=== PATIENT | female | born 1945 | race Asian ===

== ENCOUNTER 2019-04-26 09:33 | Emergency (ER) | payer MEDICARE ==
[2019-04-26] MEDS ORDERED: Sodium Chloride 0.9% 1000 ML 1,000 ML IV SCH (10:00)
--- NOTE | 2019-04-26 10:06 | ERPHSYRPT ---
- History of Present Illness Time Seen by Provider: 04/26/19 09:53 Source: patient Exam Limitations: no limitations Patient Subjective Stated Complaint: pt here for dizziness and pain to left arm today Triage Nursing Assessment: , Physician History: 73-year-old female arrives with complaint of feeling dizzy since awakening this morning approximately 9:00 she states she felt so dizzy she felt that she is having a hard time walking she states the dizziness is worse with standing up she is not having any problems moving her extremities she has no speech problems... She also states that she has had 3-4 months of pain in her left shoulder and arm not changed today. She has no chest pain or shortness of breath, no nausea, no vomiting.,. Past medical history includes high blood pressure Past surgical history includes . Social history denies tobacco alcohol or illicit drug use Timing/Duration: today, other (dizzy since this morning at 9:00, lleft arm pain for 3-4 months) Severity: moderate Modifying Factors: Improves With: nothing Associated Symptoms: other (dizzy, left arm pain), No nausea, No vomiting, No abdominal pain, No shortness of breath, No heartburn, No diaphoresis, No cough, No chest pain, No fever, No headaches, No loss of appetite, No malaise, No rash , No syncope, No seizure, No weakness Allergies/Adverse Reactions: No Known Drug Allergies Allergy (Unverified 04/26/19 09:52) Home Medications: Aspirin 81 gm Chew [Baby Aspirin 81 mg Chew] 81 mg DAILY 04/26/19 [History ] Escitalopram Oxalate 10 mg [Lexapro 10 MG] 10 mg PO DAILY 04/26/19 [History] Lansoprazole [Prevacid] 15 mg DAILY 04/26/19 [History] Lisinopril 20 mg DAILY 04/26/19 [History] Hx Influenza Vaccination/Date Given: No Hx Pneumococcal Vaccination/Date Given: No Immunizations Up to Date: Yes - Review of Systems Constitutional: No Fever, No Chills Eyes: No Symptoms Ears, Nose, & Throat: No Symptoms Respiratory: No Cough, No Dyspnea Cardiac: No Chest Pain, No Edema, No Syncope Abdominal/Gastrointestinal: No Abdominal Pain, No Nausea, No Vomiting, No Diarrhea Genitourinary Symptoms: No Dysuria Musculoskeletal: Other (left arm and shoulder pain for 3 months), No Back Pain, No Neck Pain Skin: No Symptoms Neurological: Dizziness, No Focal Weakness, No Gait Changes, No Headache, No Irritability, No Lethargy, No Paralysis, No Parasthesia, No Seizure, No Sensory Changes, No Speech Changes, No Tics, No Tremors, No Vertigo Psychological: No Symptoms Endocrine: No Symptoms All Other Systems: Reviewed and Negative - Past Medical History Pertinent Past Medical History: Yes Cardiac History: Hypertension - Past Surgical History Past Surgical History: Yes Female Surgical History: Section - Social History Smoking Status: Never smoker Exposure to second hand smoke: No Drug Use: none Patient Lives Alone: No - Female History Hx Last Menstrual Period: post Hx Now: No - Nursing Vital Signs Nursing Vital Signs: Initial Vital Signs Temperature 97.0 F 04/26/19 09:48 Pulse Rate 70 04/26/19 09:48 Respiratory Rate 16 04/26/19 09:48 Blood Pressure 128/77 04/26/19 09:48 O2 Sat by Pulse Oximetry 99 04/26/19 09:48 Pain Scale Pain Intensity 0 - Physical Exam General Appearance: no apparent distress, alert Eye Exam: PERRL/EOMI, eyes nml inspection Ears, Nose, Throat Exam: normal ENT inspection, TMs normal, pharynx normal, moist mucous membranes Neck Exam: normal inspection, non-tender, supple, full range of motion Respiratory Exam: normal breath sounds, lungs clear, No respiratory distress Cardiovascular Exam: regular rate/rhythm, normal heart sounds, normal peripheral pulses, capillary refill <2 sec Gastrointestinal/Abdomen Exam: soft, normal bowel sounds, No tenderness, No mass Back Exam: normal inspection, normal range of motion, No CVA tenderness, No vertebral tenderness Extremity Exam: normal inspection, normal range of motion, pelvis stable Neurologic Exam: alert, oriented x 3, cooperative, bid clerk II-XII nml as tested, normal mood/affect, nml cerebellar function, nml station & gait, sensation nml, other (patient is alert, oriented x3, no facial droop, cranial nerves II through XII intact, speech is normal, director distribution equal and symmetrical 5 over 5, no pronator drift, normal finger to nose, full range of motion all extremities, sensation intact to all extremities, Duarte Coma Scale 15), No motor deficits Skin Exam: normal color, warm, dry, No rash Lymphatic Exam: No adenopathy SpO2 Interpretation: normal (99%) SpO2: 99 - Course Nursing assessment & vital signs reviewed: Yes EKG Interpreted by Me: RATE (67 bpm), Sinus Rhythm, NORMAL AXIS, Other (EKG: Sinus rhythm, 67 beats per minute, normal axis, no acute ST or T wave changes noted) - Radiology Exams Chest X-ray Interpretation: Discussed w/ radiologist (chest x-ray : Impression: Nonacute hyperinflated chest) - CT Exams Head CT Interpretation: Discussed w/radiologist (CT head: Impression: Normal aging brain including atrophy and degenerative might for ischemia. No acute intracranial abnormalities) Ordered Tests: Active Orders 24 hr Category Date Time Status EKG-ER Only STAT Care 04/26/19 10:00 Active IV Insertion STAT Care 04/26/19 10:00 Active Orthostatic Vital Signs STAT Care 04/26/19 10:00 Active CHEST 1 VIEW (PORTABLE) Stat Exams 04/26/19 10:00 Completed HEAD WITHOUT CONTRAST [CT] Stat Exams 04/26/19 10:00 Completed CBC W DIFF Stat Lab 04/26/19 10:40 Completed CMP Stat Lab 04/26/19 10:40 Completed TROPONIN Q3H Lab 04/26/19 10:40 Completed TROPONIN Q3H Lab 04/26/19 13:12 Completed TROPONIN Q3H Lab 04/26/19 16:00 Ordered TROPONIN Q3H Lab 04/26/19 19:00 Ordered TROPONIN Q3H Lab 04/26/19 22:00 Ordered UA W/RFX UR CULTURE Stat Lab 04/26/19 10:00 Completed Medication Summary Generic Name Dose Route Start Last Admin Trade Name Freq PRN Reason Stop Dose Admin Sodium Chloride 1,000 mls @ 100 mls/hr 04/26/19 10:00 04/26/19 11:07 Sodium Chloride 0.9% 1000 Ml IV 05/26/19 09:59 100 mls/hr .Q10H ANNIE Administration Discontinued Medications Generic Name Dose Route Start Last Admin Trade Name Freq PRN Reason Stop Dose Admin Meclizine HCl 25 mg 04/26/19 10:52 04/26/19 11:07 Antivert 25 Mg PO 04/26/19 10:53 25 mg STAT ONE Administration Meclizine HCl Confirm 04/26/19 11:06 Antivert 25 Mg Administered 04/26/19 11:07 Dose 25 mg .ROUTE .STK-MED ONE Lab/Rad Data: Laboratory Result Diagrams 04/26/19 10:40 04/26/19 10:40 Laboratory Results 04/26/19 04/26/19 04/26/19 Range/Units 13:12 10:40 10:40 WBC 6.1 (4.0-10.5) K/mm3 RBC 4.00 L (4.1-5.4) M/mm3 Hgb 13.3 (12.0-16.0) gm/dl Hct 39.9 (35-47) % MCV 99.8 (78-100) fl MCH 33.2 H (26-32) pg MCHC 33.3 (32-36) g/dl RDW 11.6 (11.5-14.0) % Plt Count 214 (150-450) K/mm3 MPV 9.0 (6-9.5) fl Gran % 70.0 H (36.0-66.0) % Eos # (Auto) 0.12 (0-0.5) Absolute Lymphs (auto) 1.35 (1.0-4.6) Absolute Monos (auto) 0.35 (0.0-1.3) Lymphocytes % 22.1 L (24.0-44.0) % Monocytes % 5.7 (0.0-12.0) % Eosinophils % 2.0 (0.00-5.0) % Basophils % 0.2 (0.0-0.4) % Absolute Granulocytes 4.28 (1.4-6.9) Basophils # 0.01 (0-0.4) Sodium 138 (137-145) mmol/L Potassium 4.3 (3.5-5.1) mmol/L Chloride 104 (98-107) mmol/L Carbon Dioxide 24 (22-30) mmol/L Anion Gap 14.6 (5-15) MEQ/L BUN 23 H (7-17) mg/dL Creatinine 0.85 (0.52-1.04) mg/dL Estimated GFR > 60.0 ML/MIN Glucose 95 (74-106) mg/dL Calcium 10.1 (8.4-10.2) mg/dL Total Bilirubin 0.50 (0.2-1.3) mg/dL AST 23 (14-36) U/L ALT 13 (0-35) U/L Alkaline Phosphatase 86 (38-126) U/L Troponin I < 0.012 (0.000-0.034) ng/mL Serum Total Protein 7.6 (6.3-8.2) g/dL Albumin 4.2 (3.5-5.0) g/dL Urine Color (YELLOW) Urine Appearance (CLEAR) Urine pH (5-6) Ur Specific [place] (1.005-1.025) Urine Protein (Negative) Urine Ketones (NEGATIVE) Urine Blood (0-5) Jacob/ul Urine Nitrite (NEGATIVE) Urine Bilirubin (NEGATIVE) Urine Urobilinogen (0-1) mg/dL Ur Leukocyte Esterase (NEGATIVE) Urine WBC (Auto) (0-5) /HPF Urine RBC (Auto) (0-2) /HPF U Hyaline Cast (Auto) (0-2) /LPF U Epithel Cells (Auto) (FEW) /HPF Urine Bacteria (Auto) (NEGATIVE) /HPF Urine Mucus (Auto) (NEGATIVE) /HPF Urine Culture Reflexed (NO) Urine Glucose (NEGATIVE) mg/dL 04/26/19 04/26/19 Range/Units 10:40 10:00 WBC (4.0-10.5) K/mm3 RBC (4.1-5.4) M/mm3 Hgb (12.0-16.0) gm/dl Hct (35-47) % MCV (78-100) fl MCH (26-32) pg MCHC (32-36) g/dl RDW (11.5-14.0) % Plt Count (150-450) K/mm3 MPV (6-9.5) fl Gran % (36.0-66.0) % Eos # (Auto) (0-0.5) Absolute Lymphs (auto) (1.0-4.6) Absolute Monos (auto) (0.0-1.3) Lymphocytes % (24.0-44.0) % Monocytes % (0.0-12.0) % Eosinophils % (0.00-5.0) % Basophils % (0.0-0.4) % Absolute Granulocytes (1.4-6.9) Basophils # (0-0.4) Sodium (137-145) mmol/L Potassium (3.5-5.1) mmol/L Chloride (98-107) mmol/L Carbon Dioxide (22-30) mmol/L Anion Gap (5-15) MEQ/L BUN (7-17) mg/dL Creatinine (0.52-1.04) mg/dL Estimated GFR ML/MIN Glucose (74-106) mg/dL Calcium (8.4-10.2) mg/dL Total Bilirubin (0.2-1.3) mg/dL AST (14-36) U/L ALT (0-35) U/L Alkaline Phosphatase (38-126) U/L Troponin I < 0.012 (0.000-0.034) ng/mL Serum Total Protein (6.3-8.2) g/dL Albumin (3.5-5.0) g/dL Urine Color YELLOW (YELLOW) Urine Appearance CLEAR (CLEAR) Urine pH 5.0 (5-6) Ur Specific [place] 1.018 (1.005-1.025) Urine Protein NEGATIVE (Negative) Urine Ketones NEGATIVE (NEGATIVE) Urine Blood NEGATIVE (0-5) Jacob/ul Urine Nitrite NEGATIVE (NEGATIVE) Urine Bilirubin NEGATIVE (NEGATIVE) Urine Urobilinogen NEGATIVE (0-1) mg/dL Ur Leukocyte Esterase TRACE (NEGATIVE) Urine WBC (Auto) 0-2 (0-5) /HPF Urine RBC (Auto) NONE (0-2) /HPF U Hyaline Cast (Auto) 6-10 (0-2) /LPF U Epithel Cells (Auto) NONE (FEW) /HPF Urine Bacteria (Auto) RARE (NEGATIVE) /HPF Urine Mucus (Auto) SLIGHT (NEGATIVE) /HPF Urine Culture Reflexed NO (NO) Urine Glucose NEGATIVE (NEGATIVE) mg/dL - Progress Progress: improved Progress Note: 04/26/19 14:11 Patient feeling better with Antivert. EKG no acute changes. Head CT no acute intercranial changes. Labs essentially normal. Will discharge repeat troponin normal - Departure Departure Disposition: Home Clinical Impression: Dizziness, Left arm pain Condition: Fair Critical Care Time: No Referrals: JAMES RG MD [Primary Care Provider] - Additional Instructions: Return home rest plenty of fluids. Antivert 25 mg orally 3 times a day as needed for dizziness. Followup with your family . Return for acute distress or for severe symptoms.. Prescriptions: Meclizine HCl 25 mg [Antivert 25 mg] 25 mg PO TID PRN #20 tablet
--- NOTE | 2019-04-26 10:41 | XRAY ---
Indication: Dizziness. Arm pain. Comparison: May 11, 2011. Portable apical lordotic chest remains hyperinflated and clear. Heart is not enlarged for AP portable technique. Bony thorax intact with mild osteopenia and minimal degenerative changes. Impression: Nonacute hyperinflated chest.
[2019-04-26 10:44] LABS: BASOPHIL % 0.2 % (0.0-0.4); Basophil (Absolute #) 0.01 (0-0.4); Eosinophil (Absolute #) 0.12 (0-0.5); Granulocyte Absolute (ANC) 4.28 (1.4-6.9); Hematocrit 39.9 % (35-47); Hemoglobin 13.3 gm/dl (12.0-16.0); Lymphocyte (Absolute #) 1.35 (1.0-4.6); Lymphocytes % 22.1 % (24.0-44.0); Mean Cell Volume 99.8 fl (78-100); Mean Corpuscular Hgb Concent. 33.3 g/dl (32-36); Monocyte (Absolute #) 0.35 (0.0-1.3); Monocytes % 5.7 % (0.0-12.0); Platelet Count 214 K/mm3 (150-450); Red Cell Distribution Width 11.6 % (11.5-14.0); White Blood Count 6.1 K/mm3 (4.0-10.5)
--- NOTE | 2019-04-26 10:44 | XRAY ---
Indication: Dizziness and arm pain. Multiple contiguous axial images obtained through the head without contrast. Comparison: May 10, 2011. Age-appropriate global atrophy and minimal periventricular degenerative micro-ischemia. No acute intracranial hemorrhage, abnormal extra-axial fluid collection, or mass effect. Fourth ventricle is midline without hydrocephalus. [place]-white matter differentiation preserved. Bony calvarium intact. Visualized paranasal sinuses and mastoid air cells are clear. Impression: Normal aging brain including atrophy and degenerative micro-ischemia. No acute intracranial abnormalities. CT DI 71.08
[2019-04-26] MEDS ORDERED: ANTIVERT 25 MG PO ONE (10:52)
[2019-04-26 10:55] LABS: ALBUMIN 4.2 g/dL (3.5-5.0); ALKALINE PHOSPHATASE 86 U/L (38-126); ANION GAP 14.6 MEQ/L (5-15); BLOOD UREA NITROGEN 23 mg/dL (7-17); CHLORIDE 104 mmol/L (98-107); Calcium 10.1 mg/dL (8.4-10.2); Carbon Dioxide 24 mmol/L (22-30); Creatinine 1 0.85 mg/dL (0.52-1.04); Glucose 95 mg/dL (74-106); Potassium 4.3 mmol/L (3.5-5.1); SGOT/AST 23 U/L (14-36); SGPT/ALT 13 U/L (0-35); SODIUM 138 mmol/L (137-145); Total Protein 7.6 g/dL (6.3-8.2)
[2019-04-26] MEDS ORDERED: ANTIVERT 25 MG ONE (11:06)
[2019-04-26] MEDS ORDERED: Sodium Chloride 0.9% 1000 ML 1,000 ML ONE (11:06)
[2019-04-26 11:11] LABS: Mean Corpuscular Hemoglobin 33.2 pg (26-32)
[2019-04-26 11:58] LABS: Appearance CLEAR (CLEAR); Bacteria RARE /HPF (NEGATIVE); Bilirubin NEGATIVE (NEGATIVE); Blood NEGATIVE Ery/ul (0-5); Glucose NEGATIVE (NEGATIVE); Ketones NEGATIVE (NEGATIVE); Leukocyte Esterase TRACE (NEGATIVE); Mucus SLIGHT /HPF (NEGATIVE); Nitrite NEGATIVE (NEGATIVE); Protein,Urine Dip NEGATIVE (Negative); Specific Gravity 1.018 (1.005-1.025); Urobilinogen NEGATIVE mg/dL (0-1); WBC 0-2 /HPF (0-5)
[2019-04-26 12:22] VITALS: BP 120/64; PULSE 71
[2019-04-26 14:14] VITALS: O2SAT 99
== END 2019-04-26 14:20 | disposition home or self-care (01) ==
LOC: ED 09:33
DX: R42 Dizziness and giddiness (principal); M79.602 Pain in left arm; Z79.899 Other long term (current) drug therapy
CPT/HCPCS: 36415; 70450; 71045; 80053; 81001; 84484; 85025; 93005; 96360; 99284; A9270-GY

== ENCOUNTER 2021-01-31 13:02 | Emergency (ER) | payer MEDICARE ==
--- NOTE | 2021-01-31 13:36 | ERPHSYRPT ---
- History of Present Illness Time Seen by Provider: 01/31/21 13:35 Source: patient Patient Subjective Stated Complaint: Banmkewr-ed-ipt states that pt has been becoming very angry lately and wants to go to her own house, daughter in law called Dr. Rg' office to see if there was some different med that he could give her to calm her down and the pt apparently made a statement as to she was going to harm herself and so Dr. Rg' office told family to bring her to the ER. Triage Nursing Assessment: Pt brought to the ER willingly by her ymnynvys-my-bnz, pt denies any suicidal ideations, states that she just wants to go home to her own house and "do things", pt states that she is bored at her sons house, pt's neurologist is the one who suggested that she go and stay with her son approx 3 weeks ago due to her alzheimers advancing and pt is having more forgetful times and is roaming around, pt denies pain, hypertensive, pt answers questions and is smiling and laughing and appears in good spirits Physician History: This is a 75-year-old [place] female who was recently diagnosed with Alzheimer's dementia and is taking Namenda. Her neurologist is Dr. Chaudhary. She also has a history of hypertension and gastroesophageal reflux disease. Her primary care doctor is Dr. Rg. Today, while at her son's home, patient was becoming agitated and a bit angry. She made a comment about hurting herself. The enpsjlut-ae-dwr contacted Dr. Rg's office who told the [id number] to bring the patient to the emergency room for evaluation. Upon arrival into to her emergency room bed, the patient denies any type of medical or pain compla ints. She has no chest pain. She has no shortness of breath. She has no abdominal pain. She also stated that she does not want to hurt herself or anyone else. Timing/Duration: today Severity of Symptoms-Max: mild Severity of Symptoms-Current: none Context related to: living circumstances, other (Recent diagnosis of Alzheimer's dementia) Associated Symptoms: agitated Previous symptoms: no prior history Allergies/Adverse Reactions: No Known Drug Allergies Allergy (Verified 01/31/21 13:27) Home Medications: Aspirin 81 gm Chew [Baby Aspirin 81 mg Chew] 81 mg DAILY 04/26/19 [Hist ory] Escitalopram Oxalate 10 mg [Lexapro 10 MG] 20 mg PO DAILY 04/26/19 [History] Lansoprazole [Prevacid] 15 mg DAILY 04/26/19 [History] lisinopriL [Lisinopril] 20 mg DAILY 04/26/19 [History] Alendronate Sodium 70 mg [Fosamax 70 MG] 70 mg PO Q7D@0600 01/31/21 [History] Memantine HCl [Namenda] 10 mg PO BID 01/31/21 [History] Hx Influenza Vaccination/Date Given: No Hx Pneumococcal Vaccination/Date Given: No Travel Risk - International Travel Have you traveled outside of the country in past 3 weeks: No - Coronavirus Screening Are you exhibiting any of the following symptoms?: No Close contact with a COVID-19 positive Pt in past 14-21 Days: No - Past Medical History Pertinent Past Medical History: Yes Neurological History: Alzheimer's Disease ENT History: Cataracts Cardiac History: Hypertension GI Medical History: GERD History: No Pertinent History Psycho-Social History: No Pertinent History Female Reproductive Disorders: No Pertinent History - Past Surgical History Past Surgical History: Yes Female Surgical History: Hysterectomy, Section - Social History Smoking Status: Never smoker Exposure to second hand smoke: No Drug Use: none Patient Lives Alone: No - Female History Hx Now: No - Review of Systems Constitutional: No Symptoms Eyes: No Symptoms Ears, Nose, & Throat: No Symptoms Respiratory: No Symptoms Cardiac: No Symptoms Abdominal/Gastrointestinal: No Symptoms Genitourinary Symptoms: No Symptoms Musculoskeletal: No Symptoms Skin: No Symptoms Neurological: No Symptoms Psychological: No Symptoms Endocrine: No Symptoms Hematologic/Lymphatic: No Symptoms Immunological/Allergic: No Symptoms All Other Systems: Reviewed and Negative - Nursing Vital Signs Nursing Vital Signs: Initial Vital Signs Temperature 98.0 F 01/31/21 13:05 Pulse Rate 89 01/31/21 13:05 Blood Pressure 161/82 01/31/21 13:05 O2 Sat by Pulse Oximetry 100 01/31/21 13:05 Pain Scale Pain Intensity 0 - Physical Exam General Appearance: no apparent distress, alert Eyes, Ears, Nose, Throat Exam: normal ENT inspection, moist mucous membranes Neck Exam: normal inspection, non-tender, supple, full range of motion Respiratory Exam: normal breath sounds, lungs clear, airway intact, No chest tenderness, No respiratory distress Cardiovascular Exam: regular rate/rhythm, normal heart sounds, normal peripheral pulses Gastrointestinal/Abdominal Exam: soft, normal bowel sounds, No tenderness Extremities Exam: normal inspection, normal range of motion, No evidence of injury Current Suicidality: denies suicide plan Neurological Exam: alert, normal mood/affect, calm, 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 No change from EKG dated 04/26/2019.) Ordered Tests: Active Orders 24 hr Category Date Time Status EKG-ER Only STAT Care 01/31/21 13:35 Active ACETAMINOPHEN Stat Lab 01/31/21 13:55 Completed CBC W DIFF Stat Lab 01/31/21 13:55 Completed CMP Stat Lab 01/31/21 13:55 Completed ETHYL ALCOHOL Stat Lab 01/31/21 13:55 Completed SALICYLATE Stat Lab 01/31/21 13:55 Completed UA W/RFX UR CULTURE Stat Lab 01/31/21 13:41 Completed Urine Triage Profile Stat Lab 01/31/21 13:40 Completed Lab/Rad Data: Laboratory Result Diagrams 01/31/21 13:55 01/31/21 13:55 Laboratory Results 01/31/21 01/31/21 01/31/21 Range/Units 13:55 13:55 13:55 WBC 4.2 (4.0-10.5) K/mm3 RBC 3.98 L (4.1-5.4) M/mm3 Hgb 12.0 (12.0-16.0) gm/dl Hct 38.1 (35-47) % MCV 95.7 (78-100) fl MCH 30.2 (26-32) pg MCHC 31.5 L (32-36) g/dl RDW 12.8 (11.5-14.0) % Plt Count 287 (150-450) K/mm3 MPV 8.9 (7.5-11.0) fl Gran % 48.3 (36.0-66.0) % Eos # (Auto) 0.08 (0-0.5) Absolute Lymphs (auto) 1.56 (1.0-4.6) Absolute Monos (auto) 0.50 (0.0-1.3) Lymphocytes % 37.3 (24.0-44.0) % Monocytes % 12.0 (0.0-12.0) % Eosinophils % 1.9 (0.00-5.0) % Basophils % 0.5 (0.0-0.4) % Absolute Granulocytes 2.02 (1.4-6.9) Basophils # 0.02 (0-0.4) Sodium 135 L (137-145) mmol/L Potassium 4.7 (3.5-5.1) mmol/L Chloride 101 (98-107) mmol/L Carbon Dioxide 27 (22-30) mmol/L Anion Gap 11.0 (5-15) MEQ/L BUN 19 H (7-17) mg/dL Creatinine 0.94 (0.52-1.04) mg/dL Estimated GFR > 60.0 ML/MIN Glucose 93 (74-106) mg/dL Calcium 9.9 (8.4-10.2) mg/dL Total Bilirubin 0.30 (0.2-1.3) mg/dL AST 27 (14-36) U/L ALT 13 (0-35) U/L Alkaline Phosphatase 73 (38-126) U/L Serum Total Protein 8.0 (6.3-8.2) g/dL Albumin 4.5 (3.5-5.0) g/dL Urine Color (YELLOW) Urine Appearance (CLEAR) Urine pH (5-6) Ur Specific [place] (1.005-1.025) Urine Protein (Negative) Urine Ketones (NEGATIVE) Urine Blood (0-5) Jacob/ul Urine Nitrite (NEGATIVE) Urine Bilirubin (NEGATIVE) Urine Urobilinogen (0-1) mg/dL Ur Leukocyte Esterase (NEGATIVE) Urine WBC (Auto) (0-5) /HPF Urine RBC (Auto) (0-2) /HPF U Epithel Cells (Auto) (FEW) /HPF Urine Bacteria (Auto) (NEGATIVE) /HPF Urine Culture Reflexed (NO) Urine Glucose (NEGATIVE) mg/dL Salicylates < 1.0 L (2-20) mg/dL Urine Opiates Level (NEGATIVE) Ur Methadone (NEGATIVE) Acetaminophen < 10 L (10-30) ug/ml Urine Barbiturates (NEGATIVE) Ur Phencyclidine (PCP) (NEGATIVE) Urine Amphetamine (NEGATIVE) U Benzodiazepine Level (NEGATIVE) Urine Cocaine (NEGATIVE) Urine Marijuana (THC) (NEGATIVE) Ethyl Alcohol < 10 (0-10) mg/dL 01/31/21 01/31/21 Range/Units 13:41 13:40 WBC (4.0-10.5) K/mm3 RBC (4.1-5.4) M/mm3 Hgb (12.0-16.0) gm/dl Hct (35-47) % MCV (78-100) fl MCH (26-32) pg MCHC (32-36) g/dl RDW (11.5-14.0) % Plt Count (150-450) K/mm3 MPV (7.5-11.0) fl Gran % (36.0-66.0) % Eos # (Auto) (0-0.5) Absolute Lymphs (auto) (1.0-4.6) Absolute Monos (auto) (0.0-1.3) Lymphocytes % (24.0-44.0) % Monocytes % (0.0-12.0) % Eosinophils % (0.00-5.0) % Basophils % (0.0-0.4) % Absolute Granulocytes (1.4-6.9) Basophils # (0-0.4) Sodium (137-145) mmol/L Potassium (3.5-5.1) mmol/L Chloride (98-107) mmol/L Carbon Dioxide (22-30) mmol/L Anion Gap (5-15) MEQ/L BUN (7-17) mg/dL Creatinine (0.52-1.04) mg/dL Estimated GFR ML/MIN Glucose (74-106) mg/dL Calcium (8.4-10.2) mg/dL Total Bilirubin (0.2-1.3) mg/dL AST (14-36) U/L ALT (0-35) U/L Alkaline Phosphatase (38-126) U/L Serum Total Protein (6.3-8.2) g/dL Albumin (3.5-5.0) g/dL Urine Color YELLOW (YELLOW) Urine Appearance CLEAR (CLEAR) Urine pH 7.0 (5-6) Ur Specific [place] 1.012 (1.005-1.025) Urine Protein NEGATIVE (Negative) Urine Ketones NEGATIVE (NEGATIVE) Urine Blood NEGATIVE (0-5) Jacob/ul Urine Nitrite NEGATIVE (NEGATIVE) Urine Bilirubin NEGATIVE (NEGATIVE) Urine Urobilinogen NEGATIVE (0-1) mg/dL Ur Leukocyte Esterase NEGATIVE (NEGATIVE) Urine WBC (Auto) NONE (0-5) /HPF Urine RBC (Auto) NONE (0-2) /HPF U Epithel Cells (Auto) NONE (FEW) /HPF Urine Bacteria (Auto) NONE (NEGATIVE) /HPF Urine Culture Reflexed NO (NO) Urine Glucose NEGATIVE (NEGATIVE) mg/dL Salicylates (2-20) mg/dL Urine Opiates Level NEGATIVE (NEGATIVE) Ur Methadone NEGATIVE (NEGATIVE) Acetaminophen (10-30) ug/ml Urine Barbiturates NEGATIVE (NEGATIVE) Ur Phencyclidine (PCP) NEGATIVE (NEGATIVE) Urine Amphetamine NEGATIVE (NEGATIVE) U Benzodiazepine Level NEGATIVE (NEGATIVE) Urine Cocaine NEGATIVE (NEGATIVE) Urine Marijuana (THC) NEGATIVE (NEGATIVE) Ethyl Alcohol (0-10) mg/dL - Progress Progress: improved Progress Note: 01/31/21 17:25 Medical decision making: This patient was evaluated in a [id number] evaluation by [facility] staff. The patient was presented to the physician/nurse practitioner at [facility]. The callback from them stated that the patient is safe to go home in the care of the patient's [id number]. They were given multiple phone numbers to contact [facility] tomorrow to make arrangements for follow-up evaluation. Patient is also told to follow-up with her primary care physician tomorrow morning to make adjustments on her Lexapro medication if indicated and possible other medications. Patient has Alzheimer's dementia, depression and is still grieving the loss of her spouse over a year ago. Counseled pt/family regarding: lab results, diagnosis, need for follow-up - Departure Departure Disposition: Home Clinical Impression: Alzheimer's dementia, Depression, Grieving Condition: Stable Critical Care Time: No Referrals: JAMES RG MD [Primary Care Provider] - Additional Instructions: Take your medication as prescribed. Call [facility] as instructed tomorrow to make arrangements for further management. Call your family practice doctor tomorrow morning to make arrangements for management of your condition and medications
[2021-01-31 13:48] LABS: Appearance CLEAR (CLEAR); Bilirubin NEGATIVE (NEGATIVE); Blood NEGATIVE Ery/ul (0-5); Glucose NEGATIVE (NEGATIVE); Ketones NEGATIVE (NEGATIVE); Leukocyte Esterase NEGATIVE (NEGATIVE); Nitrite NEGATIVE (NEGATIVE); Protein,Urine Dip NEGATIVE (Negative); Specific Gravity 1.012 (1.005-1.025); Urobilinogen NEGATIVE mg/dL (0-1)
[2021-01-31 14:00] LABS: Amphetamine,Urine NEGATIVE (NEGATIVE); Barbiturate,Urine NEGATIVE (NEGATIVE); Benzodiazepine,Urine NEGATIVE (NEGATIVE); Cocaine,Urine NEGATIVE (NEGATIVE); Methadone,Urine NEGATIVE (NEGATIVE); Opiate,Urine NEGATIVE (NEGATIVE); PCP,Urine NEGATIVE (NEGATIVE); THC,Urine NEGATIVE (NEGATIVE)
[2021-01-31 14:15] LABS: Absolute Neutrophil Ct (ANC) 2.02 (1.4-6.9); BASOPHIL % 0.5 % (0.0-0.4); Basophil (Absolute #) 0.02 (0-0.4); Eosinophil % 1.9 % (0.00-5.0); Eosinophil (Absolute #) 0.08 (0-0.5); Hematocrit 38.1 % (35-47); Lymphocyte (Absolute #) 1.56 (1.0-4.6); Lymphocytes % 37.3 % (24.0-44.0); Mean Cell Volume 95.7 fl (78-100); Mean Corpuscular Hemoglobin 30.2 pg (26-32); Mean Corpuscular Hgb Concent. 31.5 g/dl (32-36); Mean Platelet Volume 8.9 fl (7.5-11.0); Neutrophil % 48.3 % (36.0-66.0); Platelet Count 287 K/mm3 (150-450); Red Blood Count 3.98 M/mm3 (4.1-5.4); Red Cell Distribution Width 12.8 % (11.5-14.0); White Blood Count 4.2 K/mm3 (4.0-10.5)
[2021-01-31 14:20] LABS: ALBUMIN 4.5 g/dL (3.5-5.0); ALKALINE PHOSPHATASE 73 U/L (38-126); BLOOD UREA NITROGEN 19 mg/dL (7-17); CHLORIDE 101 mmol/L (98-107); Calcium 9.9 mg/dL (8.4-10.2); Carbon Dioxide 27 mmol/L (22-30); Creatinine 1 0.94 mg/dL (0.52-1.04); EST GLOMERULAR FILTRATION RATE > 60.0 ML/MIN; ETHYL ALCOHOL < 10 mg/dL (0-10); Glucose 93 mg/dL (74-106); Potassium 4.7 mmol/L (3.5-5.1); SGOT/AST 27 U/L (14-36); SGPT/ALT 13 U/L (0-35); SODIUM 135 mmol/L (137-145)
[2021-01-31 14:27] LABS: ACETAMINOPHEN < 10 ug/ml (10-30); SALICYLATE < 1.0 mg/dL (2-20)
[2021-01-31 16:13] VITALS: PULSE 80
[2021-01-31 17:27] VITALS: BP 135/94
[2021-01-31 17:28] VITALS: O2SAT 100
== END 2021-01-31 17:33 | disposition home or self-care (01) ==
LOC: ED 13:02
DX: G30.9 Alzheimer's disease, unspecified (principal); F32.9 Major depressive disorder, single episode, unspecified; F43.20 Adjustment disorder, unspecified; I10 Essential (primary) hypertension; Z79.899 Other long term (current) drug therapy
CPT/HCPCS: 36415; 80053; 80307; 81001; 85025; 93005; 99284; G0480

== ENCOUNTER 2021-02-02 15:15 | Emergency (ER) | payer MEDICARE ==
--- NOTE | 2021-02-02 15:19 | ERPHSYRPT ---
- History of Present Illness Time Seen by Provider: 02/02/21 15:19 Source: patient, family Exam Limitations: clinical condition, language barrier Physician History: This is a 75-year-old Nepali female who was seen less than 48 hours ago in this facility because of comments that she was going to hurt herself because she is saddened by the fact that she lost her 2 years ago and is having trouble getting over his . She was evaluated by [facility][1] who allowed her to be discharged to home in the care of her dsnilynu-au-lhv and son. She was also scheduled to have an appointment with her primary care doctor yesterday which she did attend. She also was started on Depakote 250 mg once a day and took the first dose of that. Per patient's [id number]-po-[id number], the patient had a pretty good day yesterday. However, today she verbalized that she was arturo y sad about the of her . At home today, the son and resystzm-bm-eqi were in the garage cleaning it out when the patient's grandson ran out to the garage stating that the patient had locked herself in the room is not responding or opening up the door. When they were able to get inside the patient's room at home, the patient had a belt wrapped around her neck in attempt to choke herself. Family then brought her to the emergency department. Timing/Duration: today Severity of Symptoms-Max: moderate Severity of Symptoms-Current: moderate Context related to: other (Alzheimer disease and suicidal ideation as well as depression) Suicidal thoughts: gesture Associated Symptoms: depressed Previous symptoms: same symptoms as today, recently seen Allergies/Adverse Reactions: No Known Drug Allergies Allergy (Verified 02/02/21 15:26) Home Medications: Aspirin 81 gm Chew [Baby Aspirin 81 mg Chew] 81 mg DAILY 04/26/19 [History] Escitalopram Oxalate 10 mg [Lexapro 10 MG] 20 mg PO DAILY 04/26/19 [History] Lansoprazole [Prevacid] 15 mg DAILY 04/26/19 [History] lisinopriL [Lisinopril] 20 mg DAILY 04/26/19 [History] Alendronate Sodium 70 mg [Fosamax 70 MG] 70 mg PO Q7D@0600 01/31/21 [History] Memantine HCl [Namenda] 10 mg PO BID 01/31/21 [History] Divalproex Sodium ER 250 mg [Depakote EXTENDED RELEASE 250 MG] 1 ea BID 02/02/21 [History] Hx Influenza Vaccination/Date Given: No Hx Pneumococcal Vaccination/Date Given: No Travel Risk - International Travel Have you traveled outside of the country in past 3 weeks: No - Coronavirus Screening Are you exhibiting any of the following symptoms?: No Close contact with a COVID-19 positive Pt in past 14-21 Days: No - Past Medical History Pertinent Past Medical History: Yes Neurological History: Alzheimer's Disease ENT History: Cataracts Cardiac History: Hypertension GI Medical History: GERD History: No Pertinent History Psycho-Social History: No Pertinent History Female Reproductive Disorders: No Pertinent History - Past Surgical History Past Surgical History: Yes Female Surgical History: Hysterectomy, Section - Social History Smoking Status: Never smoker Exposure to second hand smoke: No Drug Use: none Patient Lives Alone: No - Review of Systems Constitutional: No Symptoms Eyes: No Symptoms Ears, Nose, & Throat: No Symptoms Respiratory: No Symptoms Cardiac: No Symptoms Abdominal/Gastrointestinal: No Symptoms Genitourinary Symptoms: No Symptoms Musculoskeletal: No Symptoms Skin: No Symptoms Neurological: No Symptoms Psychological: Depression, Suicidal Ideations Endocrine: No Symptoms Hematologic/Lymphatic: No Symptoms Immunological/Allergic: No Symptoms All Other Systems: Reviewed and Negative - Nursing Vital Signs Nursing Vital Signs: Initial Vital Signs Pulse Rate 78 02/02/21 17:22 Respiratory Rate 18 02/02/21 17:22 Blood Pressure 99/68 02/02/21 17:22 O2 Sat by Pulse Oximetry 98 02/02/21 17:22 Pain Scale Pain Intensity 0 - Physical Exam General Appearance: no apparent distress, alert Eyes, Ears, Nose, Throat Exam: normal ENT inspection, moist mucous membranes Neck Exam: normal inspection, non-tender, supple, full range of motion Respiratory Exam: normal breath sounds, lungs clear, airway intact, No chest tenderness, No respiratory distress Cardiovascular Exam: regular rate/rhythm, normal heart sounds, normal peripheral pulses Gastrointestinal/Abdominal Exam: soft, normal bowel sounds, No tenderness Neurological Exam: alert, calm, 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 Dr. Heath accepts the patient for transfer. - Departure Departure Disposition: Transfer Clinical Impression: Suicidal ideation, Depression, Complicated grieving Condition: Stable Critical Care Time: No Referrals: JAMES RG MD [Primary Care Provider] -
[2021-02-02 17:23] VITALS: PULSE 78; O2SAT 98
[2021-02-02 18:00] VITALS: BP 121/75
== END 2021-02-02 18:00 | disposition short-term general hospital (02) ==
LOC: ED 15:15
DX: R45.851 Suicidal ideations (principal); F32.9 Major depressive disorder, single episode, unspecified; F43.21 Adjustment disorder with depressed mood; Z79.899 Other long term (current) drug therapy; I10 Essential (primary) hypertension; G30.9 Alzheimer's disease, unspecified; F02.80 Dementia in other diseases classified elsewhere, unspecified severity, without behavioral disturbance, psychotic disturbance, mood disturbance, and anxiety
CPT/HCPCS: 99284

== ENCOUNTER 2021-03-06 11:41 | Emergency (ER) | payer MEDICARE ==
[2021-03-06 12:34] LABS: Absolute Neutrophil Ct (ANC) 2.81 (1.4-6.9); BASOPHIL % 0.5 % (0.0-0.4); Basophil (Absolute #) 0.02 (0-0.4); Eosinophil % 0.7 % (0.00-5.0); Eosinophil (Absolute #) 0.03 (0-0.5); Hematocrit 40.4 % (35-47); Hemoglobin 12.7 gm/dl (12.0-16.0); Lymphocyte (Absolute #) 1.26 (1.0-4.6); Lymphocytes % 28.4 % (24.0-44.0); Mean Cell Volume 96.9 fl (78-100); Mean Corpuscular Hemoglobin 30.5 pg (26-32); Mean Corpuscular Hgb Concent. 31.4 g/dl (32-36); Monocyte (Absolute #) 0.31 (0.0-1.3); Neutrophil % 63.4 % (36.0-66.0); Platelet Count 284 K/mm3 (150-450); Red Blood Count 4.17 M/mm3 (4.1-5.4); Red Cell Distribution Width 13.3 % (11.5-14.0); White Blood Count 4.4 K/mm3 (4.0-10.5)
[2021-03-06 12:54] LABS: ACETAMINOPHEN < 10 ug/ml (10-30); ALBUMIN 4.9 g/dL (3.5-5.0); ALKALINE PHOSPHATASE 91 U/L (38-126); ANION GAP 17.2 MEQ/L (5-15); BLOOD UREA NITROGEN 22 mg/dL (7-17); CHLORIDE 103 mmol/L (98-107); Calcium 10.2 mg/dL (8.4-10.2); Carbon Dioxide 27 mmol/L (22-30); Creatinine 1 1.11 mg/dL (0.52-1.04); EST GLOMERULAR FILTRATION RATE 50.7 ML/MIN; ETHYL ALCOHOL < 10 mg/dL (0-10); Glucose 108 mg/dL (74-106); Potassium 4.7 mmol/L (3.5-5.1); SALICYLATE < 1.0 mg/dL (2-20); SGOT/AST 26 U/L (14-36); SGPT/ALT 14 U/L (0-35); SODIUM 143 mmol/L (137-145); Total Protein 8.7 g/dL (6.3-8.2)
--- NOTE | 2021-03-06 13:51 | ERPHSYRPT ---
- History of Present Illness Time Seen by Provider: 03/06/21 12:25 Source: patient, police Exam Limitations: clinical condition Patient Subjective Stated Complaint: Pt was seen walking on the street and law enforcement stopped and she said that she wanted to come to the hospital to see Dr. Rg, officer called family and pt stated that she didn't want to go back home Triage Nursing Assessment: Pt brought by law enforcement due to finding her w alking in the street, pt does not want her xltmpbpw-on-exo back with her, states that she is very controlling, hypertensive, tachycardic, denies pain, doesn't appear to be in any distress Physician History: 75 years old female with history of anxiety depression, Alzheimer's dementia, hypertension, GERD was brought in the ER by PD after she was found wandering on the roads. In ED stopped her she could not give them an explanation where she was going but said "I am going to the doctor's office". Patient is unhappy with her home situation. She lives with her son and xcizrbyf-ib-iic and is very paranoid about her lurbyysi-ha-hok. Patient states "she is trying to steal my money and want to poison me". Patient does not want to go back and live with them. She wants to go to [place] where her friend lives. Denies any chest pain palpitations or shortness of breath. No difficulty ambulation. Denies any thoughts intense or plan of suicide/homicide. Patient is not a very good historian and history is limited. Allergies/Adverse Reactions: No Known Drug Allergies Allergy (Verified 03/06/21 11:54) Home Medications: Aspirin 81 gm Chew [Baby Aspirin 81 mg Chew] 81 mg DAILY 04/26/19 [History] Escitalopram Oxalate 10 mg [Lexapro 10 MG] 20 mg PO DAILY 04/26/19 [History] Lansoprazole [Prevacid] 15 mg DAILY 04/26/19 [History] lisinopriL [Lisinopril] 20 mg DAILY 04/26/19 [History] Alendronate Sodium 70 mg [Fosamax 70 MG] 70 mg PO Q7D@0600 01/31/21 [History] Memantine HCl [Namenda] 10 mg PO BID 01/31/21 [History] Divalproex Sodium ER 250 mg [Depakote EXTENDED RELEASE 250 MG] 1 ea BID 02/02/21 [History] Mirtazapine [Remeron] 15 mg PO DAILY 03/06/21 [History] Hx Influenza Vaccination/Date Given: No Hx Pneumococcal Vaccination/Date Given: No Travel Risk - International Travel Have you traveled outside of the country in past 3 weeks: No - Coronavirus Screening Are you exhibiting any of the following symptoms?: No Close contact with a COVID-19 positive Pt in past 14-21 Days: No - Vaccine Status Have you recieved a Covid-19 vaccination: Yes Soa Engineer: Moderna - Vaccination Dates Date of 2cond Vaccination (if applicable): 01/18/2021 - Past Medical History Pertinent Past Medical History: Yes Neurological History: Alzheimer's Disease ENT History: Cataracts Cardiac History: Hypertension GI Medical History: GERD History: No Pertinent History Psycho-Social History: No Pertinent History Female Reproductive Disorders: No Pertinent History - Past Surgical History Past Surgical History: Yes Female Surgical History: Hysterectomy, Section - Social History Smoking Status: Never smoker Exposure to second hand smoke: No Drug Use: none Patient Lives Alone: No - Female History Hx Now: No - Review of Systems Constitutional: No Symptoms Eyes: No Symptoms Ears, Nose, & Throat: No Symptoms Respiratory: No Symptoms Cardiac: No Symptoms Abdominal/Gastrointestinal: No Symptoms Genitourinary Symptoms: No Symptoms Musculoskeletal: No Symptoms Skin: No Symptoms Neurological: No Symptoms Psychological: Anxiety, Depression, Emotional Lability, Memory Loss Endocrine: No Symptoms Hematologic/Lymphatic: No Symptoms Immunological/Allergic: No Symptoms - Nursing Vital Signs Nursing Vital Signs: Initial Vital Signs Temperature 97.6 F 03/06/21 11:43 Pulse Rate 120 H 03/06/21 11:43 Blood Pressure 176/110 03/06/21 11:43 O2 Sat by Pulse Oximetry 96 03/06/21 11:43 Pain Scale Pain Intensity 0 - Physical Exam General Appearance: no apparent distress, alert, anxiety Eyes, Ears, Nose, Throat Exam: normal ENT inspection, TMs normal, pharynx normal Neck Exam: normal inspection, non-tender, supple, full range of motion Respiratory Exam: normal breath sounds, lungs clear Cardiovascular Exam: regular rate/rhythm, normal heart sounds Gastrointestinal/Abdominal Exam: soft, normal bowel sounds, No tenderness, No distention, No guarding Extremities Exam: normal inspection, normal range of motion, evidence of injury Neurological Exam: alert, testing engineer II-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 nml as tested, oriented x 3, anxious, depressed affect Appearance: appropriate appearance, impaired insight, impaired recent memory Behavior/Eye Contact/Speech: alert & cooperative, good eye contact, normal speech Thoughts/Hallucinations: no apparent hallucination, paranoid Skin Exam: normal color SpO2 Interpretation: normal SpO2: 98 O2 Delivery: Room Air - Course EKG Interpreted by Me: RATE (66), Sinus Rhythm, NORMAL AXIS, NORMAL INTERVALS, NORMAL QRS Ordered Tests: Active Orders 24 hr Category Date Time Status EKG-ER Only STAT Care 03/06/21 12:08 Completed House Regular Diet Diet 03/06/21 Dinner Completed ACETAMINOPHEN Stat Lab 03/06/21 12:08 Completed CBC W DIFF Stat Lab 03/06/21 12:33 Completed CMP Stat Lab 03/06/21 12:08 Completed ETHYL ALCOHOL Stat Lab 03/06/21 12:08 Completed SALICYLATE Stat Lab 03/06/21 12:08 Completed UA W/RFX UR CULTURE Stat Lab 03/06/21 14:50 Completed Medication Summary Discontinued Medications Generic Name Dose Route Start Last Admin Trade Name Kristi PRN Reason Stop Dose Admin Clonidine 0.2 mg 03/06/21 16:38 03/06/21 16:39 Catapres 0.1 Mg PO 03/06/21 16:39 0.2 mg STAT ONE Administration Clonidine Confirm 03/06/21 16:36 Catapres 0.1 Mg Administered 03/06/21 16:37 Dose 0.2 mg .ROUTE .STK-MED ONE Lab/Rad Data: Laboratory Result Diagrams 03/06/21 12:33 03/06/21 12:08 Laboratory Results 03/06/21 03/06/21 03/06/21 Range/Units 14:50 12:33 12:08 WBC 4.4 (4.0-10.5) K/mm3 RBC 4.17 (4.1-5.4) M/mm3 Hgb 12.7 (12.0-16.0) gm/dl Hct 40.4 (35-47) % MCV 96.9 (78-100) fl MCH 30.5 (26-32) pg MCHC 31.4 L (32-36) g/dl RDW 13.3 (11.5-14.0) % Plt Count 284 (150-450) K/mm3 MPV 9.0 (7.5-11.0) fl Gran % 63.4 (36.0-66.0) % Eos # (Auto) 0.03 (0-0.5) Absolute Lymphs (auto) 1.26 (1.0-4.6) Absolute Monos (auto) 0.31 (0.0-1.3) Lymphocytes % 28.4 (24.0-44.0) % Monocytes % 7.0 (0.0-12.0) % Eosinophils % 0.7 (0.00-5.0) % Basophils % 0.5 (0.0-0.4) % Absolute Granulocytes 2.81 (1.4-6.9) Basophils # 0.02 (0-0.4) Sodium 143 (137-145) mmol/L Potassium 4.7 (3.5-5.1) mmol/L Chloride 103 (98-107) mmol/L Carbon Dioxide 27 (22-30) mmol/L Anion Gap 17.2 H (5-15) MEQ/L BUN 22 H (7-17) mg/dL Creatinine 1.11 H (0.52-1.04) mg/dL Estimated GFR 50.7 ML/MIN Glucose 108 H (74-106) mg/dL Calcium 10.2 (8.4-10.2) mg/dL Total Bilirubin 0.30 (0.2-1.3) mg/dL AST 26 (14-36) U/L ALT 14 (0-35) U/L Alkaline Phosphatase 91 (38-126) U/L Serum Total Protein 8.7 H (6.3-8.2) g/dL Albumin 4.9 (3.5-5.0) g/dL Urine Color YELLOW (YELLOW) Urine Appearance CLEAR (CLEAR) Urine pH 8.0 (5-6) Ur Specific [place] 1.017 (1.005-1.025) Urine Protein NEGATIVE (Negative) Urine Ketones NEGATIVE (NEGATIVE) Urine Blood NEGATIVE (0-5) Jacob/ul Urine Nitrite NEGATIVE (NEGATIVE) Urine Bilirubin NEGATIVE (NEGATIVE) Urine Urobilinogen NEGATIVE (0-1) mg/dL Ur Leukocyte Esterase NEGATIVE (NEGATIVE) Urine WBC (Auto) NONE (0-5) /HPF Urine RBC (Auto) 0-2 (0-2) /HPF U Epithel Cells (Auto) NONE (FEW) /HPF Urine Bacteria (Auto) NONE (NEGATIVE) /HPF Urine Culture Reflexed NO (NO) Urine Glucose NEGATIVE (NEGATIVE) mg/dL Salicylates < 1.0 L (2-20) mg/dL Acetaminophen < 10 L (10-30) ug/ml Ethyl Alcohol < 10 (0-10) mg/dL - Progress Progress: unchanged Progress Note: 03/06/21 13:50 75 years old is evaluated after she was found wandering on the road. Does have paranoia with Alzheimer dementia. She is medically cleared. I have called [facility] geriatric inpatient psych which is at full capacity. We will will try at [facility] for placement. 03/06/21 18:59 Patient has been accepted for placement at [facility]. Her blood pressure was elevated, given clonidine and is improved. 03/06/21 19:[address] accepted by Dr. Ocasio at [facility] Discussed with .: Other Counseled pt/family regarding: lab results, diagnosis - Departure Departure Disposition: Transfer Clinical Impression: Paranoia (psychosis), Uncontrolled hypertension Alzheimer's dementia Qualifiers: Alzheimer's disease onset: unspecified onset Dementia behavioral disturbance: w ith behavioral disturbance Qualified Code(s): G30.9 - Alzheimer's disease, unspecified Condition: Stable Critical Care Time: No Referrals: JAMES RG MD [Primary Care Provider] -
[2021-03-06 15:46] LABS: Appearance CLEAR (CLEAR); Bilirubin NEGATIVE (NEGATIVE); Blood NEGATIVE Ery/ul (0-5); Glucose NEGATIVE (NEGATIVE); Ketones NEGATIVE (NEGATIVE); Leukocyte Esterase NEGATIVE (NEGATIVE); Nitrite NEGATIVE (NEGATIVE); Protein,Urine Dip NEGATIVE (Negative); RBC 0-2 /HPF (0-2); Specific Gravity 1.017 (1.005-1.025); Urobilinogen NEGATIVE mg/dL (0-1)
[2021-03-06] MEDS ORDERED: Catapres 0.1 MG ONE (16:36)
[2021-03-06] MEDS ORDERED: Catapres 0.1 MG PO ONE (16:38)
[2021-03-06 19:39] VITALS: PULSE 68
[2021-03-06 20:22] VITALS: BP 90/64
[2021-03-06 22:48] VITALS: O2SAT 98
== END 2021-03-06 20:25 | disposition short-term general hospital (02) ==
LOC: ED 11:41
DX: F22 Delusional disorders (principal); F29 Unspecified psychosis not due to a substance or known physiological condition; I10 Essential (primary) hypertension; G30.9 Alzheimer's disease, unspecified; Z79.899 Other long term (current) drug therapy
CPT/HCPCS: 36415; 80053; 80307; 81001; 85025; 93005; 99285; G0480; A9270-GY

== ENCOUNTER 2021-03-20 20:27 | Emergency (ER) | payer MEDICARE ==
[2021-03-20 21:28] LABS: Appearance CLEAR (CLEAR); Bilirubin NEGATIVE (NEGATIVE); Blood SMALL Ery/ul (0-5); Glucose NEGATIVE (NEGATIVE); Ketones NEGATIVE (NEGATIVE); Leukocyte Esterase NEGATIVE (NEGATIVE); Nitrite NEGATIVE (NEGATIVE); Protein,Urine Dip NEGATIVE (Negative); RBC 0-2 /HPF (0-2); Urobilinogen NEGATIVE mg/dL (0-1)
[2021-03-20 21:35] LABS: Absolute Neutrophil Ct (ANC) 2.75 (1.4-6.9); BASOPHIL % 0.7 % (0.0-0.4); Basophil (Absolute #) 0.03 (0-0.4); Eosinophil % 1.3 % (0.00-5.0); Eosinophil (Absolute #) 0.06 (0-0.5); Hematocrit 34.3 % (35-47); Hemoglobin 11.2 gm/dl (12.0-16.0); Lymphocytes % 28.3 % (24.0-44.0); Mean Cell Volume 94.5 fl (78-100); Mean Corpuscular Hemoglobin 30.9 pg (26-32); Mean Corpuscular Hgb Concent. 32.7 g/dl (32-36); Mean Platelet Volume 8.9 fl (7.5-11.0); Monocyte (Absolute #) 0.45 (0.0-1.3); Monocytes % 9.8 % (0.0-12.0); Neutrophil % 59.9 % (36.0-66.0); Platelet Count 238 K/mm3 (150-450); Red Blood Count 3.63 M/mm3 (4.1-5.4); Red Cell Distribution Width 13.1 % (11.5-14.0); White Blood Count 4.6 K/mm3 (4.0-10.5)
[2021-03-20 21:42] LABS: Amphetamine,Urine NEGATIVE (NEGATIVE); Barbiturate,Urine NEGATIVE (NEGATIVE); Benzodiazepine,Urine NEGATIVE (NEGATIVE); Cocaine,Urine NEGATIVE (NEGATIVE); Methadone,Urine NEGATIVE (NEGATIVE); Opiate,Urine NEGATIVE (NEGATIVE); PCP,Urine NEGATIVE (NEGATIVE); THC,Urine NEGATIVE (NEGATIVE)
[2021-03-20 21:48] LABS: ACETAMINOPHEN < 10 ug/ml (10-30); ALBUMIN 4.1 g/dL (3.5-5.0); ALKALINE PHOSPHATASE 103 U/L (38-126); ANION GAP 11.2 MEQ/L (5-15); BLOOD UREA NITROGEN 12 mg/dL (7-17); CHLORIDE 107 mmol/L (98-107); Calcium 9.2 mg/dL (8.4-10.2); Carbon Dioxide 26 mmol/L (22-30); Creatinine 1 0.96 mg/dL (0.52-1.04); EST GLOMERULAR FILTRATION RATE 59.9 ML/MIN; ETHYL ALCOHOL < 10 mg/dL (0-10); Glucose 107 mg/dL (74-106); Potassium 3.9 mmol/L (3.5-5.1); SALICYLATE < 1.0 mg/dL (2-20); SGOT/AST 27 U/L (14-36); SGPT/ALT 16 U/L (0-35); SODIUM 140 mmol/L (137-145); Total Protein 7.3 g/dL (6.3-8.2)
--- NOTE | 2021-03-20 23:18 | ERPHSYRPT ---
- History of Present Illness Source: patient, EMS Exam Limitations: clinical condition Patient Subjective Stated Complaint: pt arrive with law enforcement. officer states that she called the [employer] asking them to come help because she was upset. she did state to officer that she might kill herself if he left her at home. pt states she has been upset lately and was scared and shaking. pt does not want to live with her son and daughter in law, does not want to go the the retirement. has been upset about money with family and is concerned agbout people putting poison in her food. Triage Nursing Assessment: pt awake and alert, alert to person, place, and time. pt arrive with law enforcement, ambulatory with steady gait noted. respirations nonlabored with lungs cta. pt appears anxious but is cooperative. Hx Tetanus, Diphtheria Vaccination/Date Given: Yes Hx Influenza Vaccination/Date Given: No Hx Pneumococcal Vaccination/Date Given: No Immunizations Up to Date: Yes - History of Present Illness Time Seen by Provider: 03/20/21 20:52 Physician History: 75 years old female with history of hypertension, GERD, anxiety, depression, Alzheimer dementia, paranoia is brought in the ER by PD when patient called PD as she did not want to live in the house with her son and [id number]. Patient reports she feels lonely at home and misses her late a lot. She does not want to live like this anymore. Patient did state to PD that she would probably kill herself if they did not take her somewhere. Patient is paranoid about her [id number] who is trying to poison her and trying to steal her money. Patient does have ideas of hopelessness and helplessness. Does not see any help in the near future. Patient was recently evaluated in the ER and was sent to [facility] for similar kind of symptoms. Denies any chest pain palpitations or shortness of breath. Patient is not in any distress. (RAFAL GOMEZ) Allergies/Adverse Reactions: No Known Drug Allergies Allergy (Verified 03/21/21 04:10) Home Medications: Aspirin 81 gm Chew [Baby Aspirin 81 mg Chew] 81 mg DAILY 04/26/19 [History] Escitalopram Oxalate 10 mg [Lexapro 10 MG] 20 mg PO DAILY 04/26/19 [History] Lansoprazole [Prevacid] 15 mg DAILY 04/26/19 [History] lisinopriL [Lisinopril] 20 mg DAILY 04/26/19 [History] Alendronate Sodium 70 mg [Fosamax 70 MG] 70 mg PO Q7D@0600 01/31/21 [History] Memantine HCl [Namenda] 10 mg PO BID 01/31/21 [History] Divalproex Sodium ER 250 mg [Depakote EXTENDED RELEASE 250 MG] 1 ea BID 02/02/21 [History] Mirtazapine [Remeron] 15 mg PO DAILY 03/06/21 [History] Aripiprazole [Abilify] 4 mg PO HS 03/21/21 [History] Travel Risk - International Travel Have you traveled outside of the country in past 3 weeks: No - Coronavirus Screening Are you exhibiting any of the following symptoms?: No Close contact with a COVID-19 positive Pt in past 14-21 Days: No - Vaccine Status Have you recieved a Covid-19 vaccination: Yes 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 - Vaccination Dates Date of 2cond Vaccination (if applicable): 01/18/2021 - Past Medical History Pertinent Past Medical History: Yes Neurological History: Alzheimer's Disease ENT History: Cataracts Cardiac History: Hypertension GI Medical History: GERD History: No Pertinent History Psycho-Social History: No Pertinent History Female Reproductive Disorders: No Pertinent History - Past Surgical History Past Surgical History: Yes Female Surgical History: Hysterectomy, Section - Social History Smoking Status: Never smoker Exposure to second hand smoke: No Drug Use: none Patient Lives Alone: No - Review of Systems Constitutional: No Symptoms Eyes: No Symptoms Ears, Nose, & Throat: No Symptoms Respiratory: No Symptoms Cardiac: No Symptoms Abdominal/Gastrointestinal: No Symptoms Genitourinary Symptoms: No Symptoms Skin: No Symptoms Neurological: No Symptoms Psychological: Anxiety, Depression, Suicidal Ideations, Emotional Lability, Mood Changes Endocrine: No Symptoms Hematologic/Lymphatic: No Symptoms Immunological/Allergic: No Symptoms - Physical Exam General Appearance: no apparent distress, alert, anxiety Eyes, Ears, Nose, Throat Exam: normal ENT inspection, TMs normal, pharynx normal Neck Exam: normal inspection, non-tender, supple, full range of motion Respiratory Exam: normal breath sounds, lungs clear Cardiovascular Exam: regular rate/rhythm, normal heart sounds Gastrointestinal/Abdominal Exam: soft, normal bowel sounds, No tenderness Extremities Exam: normal inspection, normal range of motion, evidence of injury Current Suicidality: denies suicide plan, other (Does have ideations) Neurological Exam: alert, calm, 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 nml as tested, oriented x 3, depressed affect Appearance: appropriate appearance, denies illness, impaired insight Behavior/Eye Contact/Speech: alert & cooperative, cooperative, good eye contact, normal speech Thoughts/Hallucinations: no apparent hallucination, paranoid Skin Exam: normal color SpO2 Interpretation: normal SpO2: 97 O2 Delivery: Room Air - Nursing Vital Signs Nursing Vital Signs: Initial Vital Signs Temperature 97.8 F 03/20/21 20:38 Pulse Rate 100 H 03/20/21 20:38 Respiratory Rate 18 03/20/21 20:38 Blood Pressure 159/95 03/20/21 20:38 O2 Sat by Pulse Oximetry 97 03/20/21 20:38 Pain Scale Pain Intensity 0 Ordered Tests: Active Orders 24 hr Category Date Time Status ACETAMINOPHEN Stat Lab 03/20/21 21:30 Completed CBC W DIFF Stat Lab 03/20/21 21:30 Completed CMP Stat Lab 03/20/21 21:30 Completed ETHYL ALCOHOL Stat Lab 03/20/21 21:30 Completed SALICYLATE Stat Lab 03/20/21 21:30 Completed UA W/RFX UR CULTURE Stat Lab 03/20/21 21:00 Completed Urine Triage Profile Stat Lab 03/20/21 21:00 Completed Lab/Rad Data: Laboratory Result Diagrams 03/20/21 21:30 03/20/21 21:30 Laboratory Results 03/20/21 03/20/21 03/20/21 Range/Units 21:30 21:30 21:00 WBC 4.6 (4.0-10.5) K/mm3 RBC 3.63 L (4.1-5.4) M/mm3 Hgb 11.2 L (12.0-16.0) gm/dl Hct 34.3 L (35-47) % MCV 94.5 (78-100) fl MCH 30.9 (26-32) pg MCHC 32.7 (32-36) g/dl RDW 13.1 (11.5-14.0) % Plt Count 238 (150-450) K/mm3 MPV 8.9 (7.5-11.0) fl Gran % 59.9 (36.0-66.0) % Eos # (Auto) 0.06 (0-0.5) Absolute Lymphs (auto) 1.30 (1.0-4.6) Absolute Monos (auto) 0.45 (0.0-1.3) Lymphocytes % 28.3 (24.0-44.0) % Monocytes % 9.8 (0.0-12.0) % Eosinophils % 1.3 (0.00-5.0) % Basophils % 0.7 (0.0-0.4) % Absolute Granulocytes 2.75 (1.4-6.9) Basophils # 0.03 (0-0.4) Sodium 140 (137-145) mmol/L Potassium 3.9 (3.5-5.1) mmol/L Chloride 107 (98-107) mmol/L Carbon Dioxide 26 (22-30) mmol/L Anion Gap 11.2 (5-15) MEQ/L BUN 12 (7-17) mg/dL Creatinine 0.96 (0.52-1.04) mg/dL Estimated GFR 59.9 ML/MIN Glucose 107 H (74-106) mg/dL Calcium 9.2 (8.4-10.2) mg/dL Total Bilirubin 0.20 (0.2-1.3) mg/dL AST 27 (14-36) U/L ALT 16 (0-35) U/L Alkaline Phosphatase 103 (38-126) U/L Serum Total Protein 7.3 (6.3-8.2) g/dL Albumin 4.1 (3.5-5.0) g/dL Urine Color (YELLOW) Urine Appearance (CLEAR) Urine pH (5-6) Ur Specific [place] (1.005-1.025) Urine Protein (Negative) Urine Ketones (NEGATIVE) Urine Blood (0-5) Jacob/ul Urine Nitrite (NEGATIVE) Urine Bilirubin (NEGATIVE) Urine Urobilinogen (0-1) mg/dL Ur Leukocyte Esterase (NEGATIVE) Urine WBC (Auto) (0-5) /HPF Urine RBC (Auto) (0-2) /HPF U Epithel Cells (Auto) (FEW) /HPF Urine Bacteria (Auto) (NEGATIVE) /HPF Urine Culture Reflexed (NO) Urine Glucose (NEGATIVE) mg/dL Salicylates < 1.0 L (2-20) mg/dL Urine Opiates Level NEGATIVE (NEGATIVE) Ur Methadone NEGATIVE (NEGATIVE) Acetaminophen < 10 L (10-30) ug/ml Urine Barbiturates NEGATIVE (NEGATIVE) Ur Phencyclidine (PCP) NEGATIVE (NEGATIVE) Urine Amphetamine NEGATIVE (NEGATIVE) U Benzodiazepine Level NEGATIVE (NEGATIVE) Urine Cocaine NEGATIVE (NEGATIVE) Urine Marijuana (THC) NEGATIVE (NEGATIVE) Ethyl Alcohol < 10 (0-10) mg/dL 03/20/21 Range/Units 21:00 WBC (4.0-10.5) K/mm3 RBC (4.1-5.4) M/mm3 Hgb (12.0-16.0) gm/dl Hct (35-47) % MCV (78-100) fl MCH (26-32) pg MCHC (32-36) g/dl RDW (11.5-14.0) % Plt Count (150-450) K/mm3 MPV (7.5-11.0) fl Gran % (36.0-66.0) % Eos # (Auto) (0-0.5) Absolute Lymphs (auto) (1.0-4.6) Absolute Monos (auto) (0.0-1.3) Lymphocytes % (24.0-44.0) % Monocytes % (0.0-12.0) % Eosinophils % (0.00-5.0) % Basophils % (0.0-0.4) % Absolute Granulocytes (1.4-6.9) Basophils # (0-0.4) Sodium (137-145) mmol/L Potassium (3.5-5.1) mmol/L Chloride (98-107) mmol/L Carbon Dioxide (22-30) mmol/L Anion Gap (5-15) MEQ/L BUN (7-17) mg/dL Creatinine (0.52-1.04) mg/dL Estimated GFR ML/MIN Glucose (74-106) mg/dL Calcium (8.4-10.2) mg/dL Total Bilirubin (0.2-1.3) mg/dL AST (14-36) U/L ALT (0-35) U/L Alkaline Phosphatase (38-126) U/L Serum Total Protein (6.3-8.2) g/dL Albumin (3.5-5.0) g/dL Urine Color STRAW (YELLOW) Urine Appearance CLEAR (CLEAR) Urine pH 6.0 (5-6) Ur Specific [place] 1.010 (1.005-1.025) Urine Protein NEGATIVE (Negative) Urine Ketones NEGATIVE (NEGATIVE) Urine Blood SMALL (0-5) Jacob/ul Urine Nitrite NEGATIVE (NEGATIVE) Urine Bilirubin NEGATIVE (NEGATIVE) Urine Urobilinogen NEGATIVE (0-1) mg/dL Ur Leukocyte Esterase NEGATIVE (NEGATIVE) Urine WBC (Auto) NONE (0-5) /HPF Urine RBC (Auto) 0-2 (0-2) /HPF U Epithel Cells (Auto) NONE (FEW) /HPF Urine Bacteria (Auto) NONE (NEGATIVE) /HPF Urine Culture Reflexed NO (NO) Urine Glucose NEGATIVE (NEGATIVE) mg/dL Salicylates (2-20) mg/dL Urine Opiates Level (NEGATIVE) Ur Methadone (NEGATIVE) Acetaminophen (10-30) ug/ml Urine Barbiturates (NEGATIVE) Ur Phencyclidine (PCP) (NEGATIVE) Urine Amphetamine (NEGATIVE) U Benzodiazepine Level (NEGATIVE) Urine Cocaine (NEGATIVE) Urine Marijuana (THC) (NEGATIVE) Ethyl Alcohol (0-10) mg/dL - Progress Progress: unchanged Counseled pt/family regarding: lab results, diagnosis - Progress Progress Note: 03/20/21 23:17 She is medically cleared. We will plan her psychiatric placement in facilities around this area. 03/21/21 06:49 Multiple facilities have been called and they will review her case later this morning. Patient remained calm while in the ER. I have discussed with Dr. Stephen about case history work-up and plan with final disposition after psychiatric evaluation. (RAFAL GOMEZ) 03/21/21 09:56 [facility] has reviewed this patient's case, they accept the patient pending her Covid status. If it is negative she will be transferred there for inpatient evaluation and management. (RYLAN STEPHEN) - Departure Departure Disposition: Transfer Critical Care Time: No - Departure Clinical Impression: Suicidal ideation, Paranoia (psychosis) Condition: Stable Referrals: JAMES RG MD [Primary Care Provider] -
[2021-03-21 11:00] LABS: COVID AG -BINAX NOW RAPID TEST NEGATIVE (NEGATIVE)
[2021-03-21 11:19] VITALS: BP 141/83
[2021-03-21 11:38] VITALS: PULSE 76; O2SAT 95
== END 2021-03-21 11:41 | disposition short-term general hospital (02) ==
LOC: ED 20:27
DX: R45.851 Suicidal ideations (principal)
CPT/HCPCS: 36415; 80053; 80307; 81001; 85025; 99000; 99285; G0480

== ENCOUNTER 2021-03-29 14:46 | Emergency (ER) | payer MEDICARE ==
[2021-03-29 14:55] VITALS: O2SAT 96
--- NOTE | 2021-03-29 15:10 | ERPHSYRPT ---
- History of Present Illness Time Seen by Provider: 03/29/21 15:05 Source: patient Exam Limitations: no limitations Patient Subjective Stated Complaint: Pt was at home and decided she wanted to kill herself and so she got a knife and was going to cut her wrists and her son took the knife from her Triage Nursing Assessment: Pt brought to the ER by law enforcement due to pt was going to slice her wrists but her son took the knife away from her, pt is unhappy living at sons house and wants to go to a fpc to be around people, pt states that she likes it here, pt wants to to be with her who passed a couple of years ago Physician History: This is a 75-year-old female who has been to our emergency department several times recently for suicidal issues. She has a history of Alzheimer's disease, hypertension and gastroesophageal reflux disease. Patient lost her in the last year or so. She has stated that she wants to be with him. She had suicidal thoughts and grabbed a knife today. She is here for medical evaluation evaluation and possible placement to an inpatient facility. Timing/Duration: today Severity of Symptoms-Max: moderate Severity of Symptoms-Current: moderate Context related to: other (Loss of spouse) Suicidal thoughts: gesture, other (Suicidal ideation) Associated Symptoms: depressed, suicidal ideation Previous symptoms: same symptoms as today, recently seen, recent hospitalization , recently treated Allergies/Adverse Reactions: No Known Drug Allergies Allergy (Verified 03/29/21 14:55) Home Medications: Aspirin 81 gm Chew [Baby Aspirin 81 mg Chew] 81 mg DAILY 04/26/19 [History] Escitalopram Oxalate 10 mg [Lexapro 10 MG] 20 mg PO DAILY 04/26/19 [History] Lansoprazole [Prevacid] 15 mg DAILY 04/26/19 [History] lisinopriL [Lisinopril] 20 mg DAILY 04/26/19 [History] Alendronate Sodium 70 mg [Fosamax 70 MG] 70 mg PO Q7D@0600 01/31/21 [History] Memantine HCl [Namenda] 10 mg PO BID 01/31/21 [History] Divalproex Sodium ER 250 mg [Depakote EXTENDED RELEASE 250 MG] 1 ea BID 02/02/21 [History] Mirtazapine [Remeron] 15 mg PO DAILY 03/06/21 [History] Aripiprazole [Abilify] 4 mg PO HS 03/21/21 [History] Hx Tetanus, Diphtheria Vaccination/Date Given: Yes Hx Influenza Vaccination/Date Given: No Hx Pneumococcal Vaccination/Date Given: No Travel Risk - International Travel Have you traveled outside of the country in past 3 weeks: No - Coronavirus Screening Are you exhibiting any of the following symptoms?: No Close contact with a COVID-19 positive Pt in past 14-21 Days: No - Vaccine Status Have you recieved a Covid-19 vaccination: Yes 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 - Vaccination Dates Date of 2cond Vaccination (if applicable): 01/18/2021 - Past Medical History Pertinent Past Medical History: Yes Neurological History: Alzheimer's Disease ENT History: Cataracts Cardiac History: Hypertension GI Medical History: GERD History: No Pertinent History Psycho-Social History: No Pertinent History Female Reproductive Disorders: No Pertinent History - Past Surgical History Past Surgical History: Yes Female Surgical History: Hysterectomy, Section - Social History Smoking Status: Never smoker Exposure to second hand smoke: No Drug Use: none Patient Lives Alone: No - Female History Hx Now: No - Nursing Vital Signs Nursing Vital Signs: Initial Vital Signs Pulse Rate 106 H 03/29/21 14:47 Blood Pressure 130/91 03/29/21 14:47 O2 Sat by Pulse Oximetry 96 03/29/21 14:47 Pain Scale Pain Intensity 0 - Physical Exam General Appearance: no apparent distress, alert, anxiety Eyes, Ears, Nose, Throat Exam: normal ENT inspection, moist mucous membranes Neck Exam: normal inspection, non-tender, supple, full range of motion Respiratory Exam: normal breath sounds, lungs clear, airway intact, No chest tenderness, No respiratory distress Cardiovascular Exam: regular rate/rhythm, normal heart sounds, normal peripheral pulses Gastrointestinal/Abdominal Exam: soft, normal bowel sounds, No tenderness Extremities Exam: normal inspection, normal range of motion, No evidence of injury Current Suicidality: has suicide plan Neurological Exam: alert, normal mood/affect, calm, 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 No changes when compared to EKG dated 03/06/2021.) Ordered Tests: Active Orders 24 hr Category Date Time Status Clean Catch Urine Specimen STAT Care 03/29/21 14:50 Active EKG-ER Only STAT Care 03/29/21 14:50 Active Psychiatric Consult STAT Cons 03/29/21 14:50 Active ACETAMINOPHEN Stat Lab 03/29/21 15:05 Completed CBC W DIFF Stat Lab 03/29/21 14:50 Completed CMP Stat Lab 03/29/21 15:05 Completed ETHYL ALCOHOL Stat Lab 03/29/21 15:05 Completed SALICYLATE Stat Lab 03/29/21 15:05 Completed UA W/RFX UR CULTURE Stat Lab 03/29/21 14:59 Completed Urine Triage Profile Stat Lab 03/29/21 14:59 Completed Lab/Rad Data: Laboratory Result Diagrams 03/29/21 14:50 03/29/21 15:05 Laboratory Results 03/29/21 03/29/21 03/29/21 Range/Units 15:05 15:05 14:59 WBC (4.0-10.5) K/mm3 RBC (4.1-5.4) M/mm3 Hgb (12.0-16.0) gm/dl Hct (35-47) % MCV (78-100) fl MCH (26-32) pg MCHC (32-36) g/dl RDW (11.5-14.0) % Plt Count (150-450) K/mm3 MPV (7.5-11.0) fl Gran % (36.0-66.0) % Eos # (Auto) (0-0.5) Absolute Lymphs (auto) (1.0-4.6) Absolute Monos (auto) (0.0-1.3) Lymphocytes % (24.0-44.0) % Monocytes % (0.0-12.0) % Eosinophils % (0.00-5.0) % Basophils % (0.0-0.4) % Absolute Granulocytes (1.4-6.9) Basophils # (0-0.4) Sodium 136 L (137-145) mmol/L Potassium 4.2 (3.5-5.1) mmol/L Chloride 102 (98-107) mmol/L Carbon Dioxide 25 (22-30) mmol/L Anion Gap 13.1 (5-15) MEQ/L BUN 20 H (7-17) mg/dL Creatinine 1.03 (0.52-1.04) mg/dL Estimated GFR 55.2 ML/MIN Glucose 121 H (74-106) mg/dL Calcium 9.6 (8.4-10.2) mg/dL Total Bilirubin 0.30 (0.2-1.3) mg/dL AST 27 (14-36) U/L ALT 16 (0-35) U/L Alkaline Phosphatase 63 (38-126) U/L Serum Total Protein 7.6 (6.3-8.2) g/dL Albumin 4.4 (3.5-5.0) g/dL Urine Color (YELLOW) Urine Appearance (CLEAR) Urine pH (5-6) Ur Specific [place] (1.005-1.025) Urine Protein (Negative) Urine Ketones (NEGATIVE) Urine Blood (0-5) Jacob/ul Urine Nitrite (NEGATIVE) Urine Bilirubin (NEGATIVE) Urine Urobilinogen (0-1) mg/dL Ur Leukocyte Esterase (NEGATIVE) Urine WBC (Auto) (0-5) /HPF Urine RBC (Auto) (0-2) /HPF U Epithel Cells (Auto) (FEW) /HPF Urine Bacteria (Auto) (NEGATIVE) /HPF Urine Mucus (Auto) (NEGATIVE) /HPF Urine Culture Reflexed (NO) Urine Glucose (NEGATIVE) mg/dL Salicylates < 1.0 L (2-20) mg/dL Urine Opiates Level NEGATIVE (NEGATIVE) Ur Methadone NEGATIVE (NEGATIVE) Acetaminophen < 10 L (10-30) ug/ml Urine Barbiturates NEGATIVE (NEGATIVE) Valproic Acid 36.5 L (50-100) ug/mL Ur Phencyclidine (PCP) NEGATIVE (NEGATIVE) Urine Amphetamine NEGATIVE (NEGATIVE) U Benzodiazepine Level NEGATIVE (NEGATIVE) Urine Cocaine NEGATIVE (NEGATIVE) Urine Marijuana (THC) NEGATIVE (NEGATIVE) Ethyl Alcohol < 10 (0-10) mg/dL 03/29/21 03/29/21 Range/Units 14:59 14:50 WBC 4.0 (4.0-10.5) K/mm3 RBC 3.61 L (4.1-5.4) M/mm3 Hgb 11.0 L (12.0-16.0) gm/dl Hct 34.6 L (35-47) % MCV 95.8 (78-100) fl MCH 30.5 (26-32) pg MCHC 31.8 L (32-36) g/dl RDW 14.0 (11.5-14.0) % Plt Count 221 (150-450) K/mm3 MPV 8.7 (7.5-11.0) fl Gran % 65.3 (36.0-66.0) % Eos # (Auto) 0.04 (0-0.5) Absolute Lymphs (auto) 0.91 L (1.0-4.6) Absolute Monos (auto) 0.41 (0.0-1.3) Lymphocytes % 22.9 L (24.0-44.0) % Monocytes % 10.3 (0.0-12.0) % Eosinophils % 1.0 (0.00-5.0) % Basophils % 0.5 (0.0-0.4) % Absolute Granulocytes 2.59 (1.4-6.9) Basophils # 0.02 (0-0.4) Sodium (137-145) mmol/L Potassium (3.5-5.1) mmol/L Chloride (98-107) mmol/L Carbon Dioxide (22-30) mmol/L Anion Gap (5-15) MEQ/L BUN (7-17) mg/dL Creatinine (0.52-1.04) mg/dL Estimated GFR ML/MIN Glucose (74-106) mg/dL Calcium (8.4-10.2) mg/dL Total Bilirubin (0.2-1.3) mg/dL AST (14-36) U/L ALT (0-35) U/L Alkaline Phosphatase (38-126) U/L Serum Total Protein (6.3-8.2) g/dL Albumin (3.5-5.0) g/dL Urine Color YELLOW (YELLOW) Urine Appearance CLEAR (CLEAR) Urine pH 6.0 (5-6) Ur Specific [place] 1.015 (1.005-1.025) Urine Protein NEGATIVE (Negative) Urine Ketones NEGATIVE (NEGATIVE) Urine Blood NEGATIVE (0-5) Jacob/ul Urine Nitrite NEGATIVE (NEGATIVE) Urine Bilirubin NEGATIVE (NEGATIVE) Urine Urobilinogen NEGATIVE (0-1) mg/dL Ur Leukocyte Esterase TRACE (NEGATIVE) Urine WBC (Auto) NONE (0-5) /HPF Urine RBC (Auto) NONE (0-2) /HPF U Epithel Cells (Auto) NONE (FEW) /HPF Urine Bacteria (Auto) NONE SEEN (NEGATIVE) /HPF Urine Mucus (Auto) SLIGHT (NEGATIVE) /HPF Urine Culture Reflexed NO (NO) Urine Glucose NEGATIVE (NEGATIVE) mg/dL Salicylates (2-20) mg/dL Urine Opiates Level (NEGATIVE) Ur Methadone (NEGATIVE) Acetaminophen (10-30) ug/ml Urine Barbiturates (NEGATIVE) Valproic Acid (50-100) ug/mL Ur Phencyclidine (PCP) (NEGATIVE) Urine Amphetamine (NEGATIVE) U Benzodiazepine Level (NEGATIVE) Urine Cocaine (NEGATIVE) Urine Marijuana (THC) (NEGATIVE) Ethyl Alcohol (0-10) mg/dL - Progress Progress: unchanged Progress Note: 03/29/21 19:20 This patient has had multiple visits to this emergency department for suicidal gestures and ideation. Patient's case was reviewed with Dr. Heath at [facility] (formerly [facility]). They have accepted her for transfer to their facility for inpatient treatment Counseled pt/family regarding: lab results, diagnosis, need for follow-up, rad results - Departure Departure Disposition: Transfer Clinical Impression: Suicide gesture, Depression, Depression Condition: Stable Critical Care Time: No Referrals: JAMES RG MD [Primary Care Provider] -
[2021-03-29 15:17] LABS: Absolute Neutrophil Ct (ANC) 2.59 (1.4-6.9); BASOPHIL % 0.5 % (0.0-0.4); Basophil (Absolute #) 0.02 (0-0.4); Eosinophil (Absolute #) 0.04 (0-0.5); Hematocrit 34.6 % (35-47); Lymphocyte (Absolute #) 0.91 (1.0-4.6); Lymphocytes % 22.9 % (24.0-44.0); Mean Cell Volume 95.8 fl (78-100); Mean Corpuscular Hemoglobin 30.5 pg (26-32); Mean Corpuscular Hgb Concent. 31.8 g/dl (32-36); Mean Platelet Volume 8.7 fl (7.5-11.0); Monocyte (Absolute #) 0.41 (0.0-1.3); Monocytes % 10.3 % (0.0-12.0); Neutrophil % 65.3 % (36.0-66.0); Platelet Count 221 K/mm3 (150-450); Red Blood Count 3.61 M/mm3 (4.1-5.4)
[2021-03-29 15:34] LABS: ACETAMINOPHEN < 10 ug/ml (10-30); ALBUMIN 4.4 g/dL (3.5-5.0); ALKALINE PHOSPHATASE 63 U/L (38-126); ANION GAP 13.1 MEQ/L (5-15); BLOOD UREA NITROGEN 20 mg/dL (7-17); CHLORIDE 102 mmol/L (98-107); Calcium 9.6 mg/dL (8.4-10.2); Carbon Dioxide 25 mmol/L (22-30); Creatinine 1 1.03 mg/dL (0.52-1.04); EST GLOMERULAR FILTRATION RATE 55.2 ML/MIN; ETHYL ALCOHOL < 10 mg/dL (0-10); Glucose 121 mg/dL (74-106); Potassium 4.2 mmol/L (3.5-5.1); SALICYLATE < 1.0 mg/dL (2-20); SGOT/AST 27 U/L (14-36); SGPT/ALT 16 U/L (0-35); SODIUM 136 mmol/L (137-145); Total Protein 7.6 g/dL (6.3-8.2)
[2021-03-29 15:36] LABS: Appearance CLEAR (CLEAR); Bilirubin NEGATIVE (NEGATIVE); Blood NEGATIVE Ery/ul (0-5); Glucose NEGATIVE (NEGATIVE); Ketones NEGATIVE (NEGATIVE); Leukocyte Esterase TRACE (NEGATIVE); Mucus SLIGHT /HPF (NEGATIVE); Nitrite NEGATIVE (NEGATIVE); Protein,Urine Dip NEGATIVE (Negative); Specific Gravity 1.015 (1.005-1.025); Urobilinogen NEGATIVE mg/dL (0-1)
[2021-03-29 15:43] LABS: Bacteria NONE SEEN /HPF (NEGATIVE)
[2021-03-29 15:49] LABS: Amphetamine,Urine NEGATIVE (NEGATIVE); Barbiturate,Urine NEGATIVE (NEGATIVE); Benzodiazepine,Urine NEGATIVE (NEGATIVE); Cocaine,Urine NEGATIVE (NEGATIVE); Methadone,Urine NEGATIVE (NEGATIVE); Opiate,Urine NEGATIVE (NEGATIVE); PCP,Urine NEGATIVE (NEGATIVE); THC,Urine NEGATIVE (NEGATIVE)
[2021-03-29 19:53] VITALS: BP 162/93; PULSE 86
== END 2021-03-29 20:08 | disposition short-term general hospital (02) ==
LOC: ED 14:46
DX: F32.9 Major depressive disorder, single episode, unspecified (principal); G30.9 Alzheimer's disease, unspecified; F02.80 Dementia in other diseases classified elsewhere, unspecified severity, without behavioral disturbance, psychotic disturbance, mood disturbance, and anxiety; I10 Essential (primary) hypertension; K21.9 Gastro-esophageal reflux disease without esophagitis
CPT/HCPCS: 36415; 80053; 80164; 80307; 81001; 85025; 93005; 99285; G0480

== ENCOUNTER 2021-08-22 13:20 | Emergency (ER) | payer MEDICARE ==
[2021-08-22 13:54] LABS: Absolute Neutrophil Ct (ANC) 2.54 (1.4-6.9); BASOPHIL % 0.5 % (0.0-0.4); Basophil (Absolute #) 0.02 (0-0.4); Eosinophil (Absolute #) 0.04 (0-0.5); Hematocrit 37.7 % (35-47); Lymphocytes % 25.8 % (24.0-44.0); Mean Cell Volume 89.5 fl (78-100); Mean Corpuscular Hemoglobin 28.5 pg (26-32); Mean Corpuscular Hgb Concent. 31.8 g/dl (32-36); Mean Platelet Volume 8.9 fl (7.5-11.0); Monocyte (Absolute #) 0.28 (0.0-1.3); Monocytes % 7.2 % (0.0-12.0); Neutrophil % 65.5 % (36.0-66.0); Platelet Count 260 K/mm3 (150-450); Red Blood Count 4.21 M/mm3 (4.1-5.4); Red Cell Distribution Width 14.2 % (11.5-14.0); White Blood Count 3.9 K/mm3 (4.0-10.5)
[2021-08-22 14:11] LABS: ALBUMIN 4.5 g/dL (3.5-5.0); ANION GAP 15.5 MEQ/L (5-15); BILIRUBIN,TOTAL 0.4 mg/dL (0.2-1.3); Calcium 9.5 mg/dL (8.4-10.2); Creatinine 1 0.97 mg/dL (0.52-1.04); EST GLOMERULAR FILTRATION RATE 59.2 ML/MIN; Potassium 4.3 mmol/L (3.5-5.1)
--- NOTE | 2021-08-22 14:37 | XRAY ---
Exam: CT of the head without IV contrast from 08/22/2021. CTDI: 53.92 mGy Comparison: CT of the head without IV contrast from 08/03/2019. Indication: 75-year-old female with dizziness. Technique: Non-IV contrast axial images were obtained through the brain. Reconstructed coronal and sagittal images were created and reviewed. Findings: The patient's head is slightly tilted in the CT gantry. The ventricles appear of unremarkable size for the patient's age. Mild bilateral basal ganglia calcification is seen. I see no focal mass effect or midline shift. No acute intracranial bleed or abnormal extra-axial fluid collection is seen. There is minor periventricular chronic white matter changes seen within the upper posterior left parietal convexity. A discrete low attenuation infarct within a major cerebral or cerebellar artery distribution is not seen. There is mild prominence of the cortical sulci and basilar cisterns, not inappropriate for the patient's stated age of 75 years. Structures of the posterior fossa appear unremarkable. Some vascular calcification is seen within the distal left vertebral artery and cavernous portion of both distal ICAs. The calvarium appears intact without evidence of fracture. The visualized paranasal sinuses are clear without air-fluid levels. Mastoid air cells are clear without effusion. The middle ear cavities appear grossly unremarkable. The orbits appear grossly unremarkable. Impression: 1. I see no acute intracranial bleed or other acute intracranial process. 2. There is some minimal bilateral periventricular chronic white matter ischemic disease, most evident within the upper posterior left parietal convexity. I don't believe this represents a significant change. A new low attenuation infarct is not seen. 3. Other incidental findings, as discussed above.
--- NOTE | 2021-08-22 14:38 | XRAY ---
Exam: AP upright portable chest film from 08/22/2021. Comparison: AP portable chest film from 04/26/2019. Indication: 75-year-old female with dizziness. Findings: The transverse heart size appears within normal limits. The film was obtained in a mildly lordotic projection. Mild tortuosity of the descending thoracic aorta is seen. The lungs are adequately inflated. There appears to be some mild transversely oriented subsegmental atelectasis at the lateral left lung base adjacent to the left hemidiaphragm. Otherwise, the lung ravi appear clear. The pulmonary vascularity is normal. Mild biapical pleural thickening is seen. There is no pneumothorax or pleural effusion. The bones are demineralized. Slight convexity of the mid thoracic spine toward the right is seen. No acute osseous process is seen. Impression: 1. There is some mild transversely oriented subsegmental plate atelectasis at the lateral left lung base near the left hemidiaphragm which is new from 04/18/2019. 2. Otherwise, the lungs are well expanded and appear clear. 3. Normal transverse heart size.
[2021-08-22 14:52] LABS: Appearance CLEAR (CLEAR); Bilirubin NEGATIVE (NEGATIVE); Blood NEGATIVE Ery/ul (0-5); Glucose NEGATIVE (NEGATIVE); Ketones NEGATIVE (NEGATIVE); Leukocyte Esterase NEGATIVE (NEGATIVE); Nitrite NEGATIVE (NEGATIVE); Protein,Urine Dip NEGATIVE (Negative); Specific Gravity 1.003 (1.005-1.025); Urobilinogen NEGATIVE mg/dL (0-1)
[2021-08-22] MEDS ORDERED: Sodium Chloride 0.9% 500 ML 500 ML IV ONE ×2 (15:10→15:15)
--- NOTE | 2021-08-22 15:15 | ERPHSYRPT ---
- History of Present Illness Time Seen by Provider: 08/22/21 13:22 Source: patient, EMS Exam Limitations: clinical condition Patient Subjective Stated Complaint: dizziness onset this morning after taking morning medications Triage Nursing Assessment: pt to ED by EMS c/o dizziness, "not feeling right" since taking medicatiosn this morning at home. lives at [facility]. EMS reports meds were passed, pt went to restroom, then came back and took medications and began feeling dizzy shortly after. denies pain at this time, but states "do not feel right inside." Physician History: 75 years old female resident of assisted living with history of Alzheimer dementia, hypertension, GERD is brought in the ER by EMS with chief complaint of feeling dizzy, lightheaded, not feeling herself after she took her morning meds. Patient reports she was given medications which were there in the room and she took them after using bathroom and later started to feel lightheaded with activity. She is worried about somebody might have tried to poison her. Denies any difficulty movements of extremities. Denies any chest pain palpitations or shortness of breath. No headache, focal numbness tingling weakness or diffic ulty speech. No visual disturbance. Does have some nausea without vomiting or abdominal pain. Is not a good historian and history is limited. Timing/Duration: today, constant, sudden, worse Severity: moderate Modifying Factors: Improves With: rest. Worsens With: movement Associated Symptoms: nausea, weakness, No vomiting, No abdominal pain, No shortness of breath, No heartburn, No diaphoresis, No cough, No chest pain, No fever, No headaches, No loss of appetite, No malaise, No syncope, No seizure Allergies/Adverse Reactions: No Known Drug Allergies Allergy (Verified 08/22/21 13:42) Home Medications: Aspirin 81 gm Chew [Baby Aspirin 81 mg Chew] 81 mg DAILY 04/26/19 [History] Escitalopram Oxalate 10 mg [Lexapro 10 MG] 20 mg PO DAILY 04/26/19 [History] Lansoprazole [Prevacid] 15 mg DAILY 04/26/19 [History] lisinopriL [Lisinopril] 20 mg DAILY 04/26/19 [History] Memantine HCl [Namenda] 10 mg PO BID 01/31/21 [History] Mirtazapine [Remeron] 15 mg PO DAILY 03/06/21 [History] Alendronate Sodium 70 mg [Fosamax 70 MG] 70 mg PO WEEKLY 08/22/21 [History] Calcium Carb/D3/Mag Aa Chelate [Coral Calcium Capsule] 1 each PO DAILY 08/22/21 [History] Levothyroxine Sodium 50 Mcg [Synthroid 50 Mcg] 50 mcg PO DAILY 08/22/21 [History] Rivastigmine [Exelon] 1 each TD DAILY 08/22/21 [History] Hx Tetanus, Diphtheria Vaccination/Date Given: Yes Hx Influenza Vaccination/Date Given: No Hx Pneumococcal Vaccination/Date Given: No Immunizations Up to Date: No Travel Risk - International Travel Have you traveled outside of the country in past 3 weeks: No - Coronavirus Screening Are you exhibiting any of the following symptoms?: No Close contact with a COVID-19 positive Pt in past 14-21 Days: No - Vaccine Status Have you recieved a Covid-19 vaccination: Yes 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[email or web address] - Vaccination Dates Date of 2cond Vaccination (if applicable): unknown - Review of Systems Constitutional: Fatigue, Weakness Eyes: No Symptoms Ears, Nose, & Throat: No Symptoms Respiratory: No Symptoms Cardiac: No Symptoms Abdominal/Gastrointestinal: Nausea Genitourinary Symptoms: No Symptoms Musculoskeletal: Arthralgias Skin: No Symptoms Neurological: Dizziness Psychological: Anxiety, Depression, Memory Loss Endocrine: No Symptoms Immunological/Allergic: No Symptoms - Past Medical History Pertinent Past Medical History: Yes Neurological History: Alzheimer's Disease, Dementia ENT History: Cataracts Cardiac History: Hypertension GI Medical History: GERD History: No Pertinent History Psycho-Social History: No Pertinent History Female Reproductive Disorders: No Pertinent History - Past Surgical History Past Surgical History: Yes Female Surgical History: Hysterectomy, Section - Social History Smoking Status: Never smoker Exposure to second hand smoke: No Drug Use: none Patient Lives Alone: No ([facility] assisted living) - Nursing Vital Signs Nursing Vital Signs: Initial Vital Signs Temperature 97.9 F 08/22/21 13:24 Pulse Rate 104 H 08/22/21 13:24 Respiratory Rate 20 08/22/21 13:24 Blood Pressure 156/108 08/22/21 13:24 O2 Sat by Pulse Oximetry 95 08/22/21 13:24 Pain Scale Pain Intensity 0 - Physical Exam General Appearance: no apparent distress, alert, anxiety Eye Exam: PERRL/EOMI, eyes nml inspection Ears, Nose, Throat Exam: normal ENT inspection, TMs normal, pharynx normal, moist mucous membranes Neck Exam: normal inspection, non-tender, supple, full range of motion Respiratory Exam: normal breath sounds, lungs clear Cardiovascular Exam: regular rate/rhythm, normal heart sounds Gastrointestinal/Abdomen Exam: soft, normal bowel sounds, No tenderness Back Exam: normal inspection, normal range of motion Extremity Exam: normal inspection, normal range of motion, pelvis stable Neurologic Exam: alert, oriented x 3, cooperative, 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 as tested, nml cerebellar function, sensation nml, No normal mood/affect, No motor deficits Skin Exam: normal color SpO2 Interpretation: normal SpO2: 95 O2 Delivery: Room Air Ordered Tests: Active Orders 24 hr Category Date Time Status Rug Weaver STAT Care 08/22/21 13:34 Active EKG-ER Only STAT Care 08/22/21 13:33 Active IV Insertion STAT Care 08/22/21 13:33 Active NPO (ED) STAT Care 08/22/21 13:33 Active Orthostatic Vital Signs STAT Care 08/22/21 13:34 Active CHEST 1 VIEW (PORTABLE) Stat Exams 08/22/21 13:33 Completed HEAD WITHOUT CONTRAST [CT] Stat Exams 08/22/21 13:33 Completed CBC W DIFF Stat Lab 08/22/21 13:43 Completed CMP Stat Lab 08/22/21 13:43 Completed MAGNESIUM Stat Lab 08/22/21 13:43 Completed TROPONIN Q3H Lab 08/22/21 13:43 Completed TROPONIN Q3H Lab 08/22/21 16:45 Ordered TROPONIN Q3H Lab 08/22/21 19:45 Ordered TROPONIN Q3H Lab 08/22/21 22:45 Ordered TROPONIN Q3H Lab 08/23/21 01:45 Ordered UA W/RFX UR CULTURE Stat Lab 08/22/21 14:19 Completed Medication Summary Generic Name Dose Route Start Last Admin Trade Name Freq PRN Reason Stop Dose Admin Sodium Chloride 500 mls @ 500 mls/hr 08/22/21 15:10 08/22/21 15:17 Sodium Chloride 0.9% 500 Ml IV 08/22/21 16:09 500 mls/hr .Q1H ONE Administration Discontinued Medications Generic Name Dose Route Start Last Admin Trade Name Kristi PRN Reason Stop Dose Admin Sodium Chloride Confirm 08/22/21 15:15 Sodium Chloride 0.9% 500 Ml Administered 08/22/21 15:16 Dose 500 mls @ IV .STK-MED ONE Lab/Rad Data: Laboratory Result Diagrams 08/22/21 13:43 08/22/21 13:43 Laboratory Results 08/22/21 08/22/21 08/22/21 Range/Units 14:19 13:43 13:43 WBC (4.0-10.5) K/mm3 RBC (4.1-5.4) M/mm3 Hgb (12.0-16.0) gm/dl Hct (35-47) % MCV (78-100) fl MCH (26-32) pg MCHC (32-36) g/dl RDW (11.5-14.0) % Plt Count (150-450) K/mm3 MPV (7.5-11.0) fl Gran % (36.0-66.0) % Eos # (Auto) (0-0.5) Absolute Lymphs (auto) (1.0-4.6) Absolute Monos (auto) (0.0-1.3) Lymphocytes % (24.0-44.0) % Monocytes % (0.0-12.0) % Eosinophils % (0.00-5.0) % Basophils % (0.0-0.4) % Absolute Granulocytes (1.4-6.9) Basophils # (0-0.4) Sodium (137-145) mmol/L Potassium (3.5-5.1) mmol/L Chloride (98-107) mmol/L Carbon Dioxide (22-30) mmol/L Anion Gap (5-15) MEQ/L BUN (7-17) mg/dL Creatinine (0.52-1.04) mg/dL Estimated GFR ML/MIN Glucose (74-106) mg/dL Calcium (8.4-10.2) mg/dL Magnesium 1.9 (1.6-2.3) mg/dL Total Bilirubin (0.2-1.3) mg/dL AST (14-36) U/L ALT (0-35) U/L Alkaline Phosphatase (38-126) U/L Troponin I < 0.012 (0.000-0.034) ng/mL Serum Total Protein (6.3-8.2) g/dL Albumin (3.5-5.0) g/dL Urine Color STRAW (YELLOW) Urine Appearance CLEAR (CLEAR) Urine pH 7.0 (5-6) Ur Specific [place] 1.003 (1.005-1.025) Urine Protein NEGATIVE (Negative) Urine Ketones NEGATIVE (NEGATIVE) Urine Blood NEGATIVE (0-5) Jacob/ul Urine Nitrite NEGATIVE (NEGATIVE) Urine Bilirubin NEGATIVE (NEGATIVE) Urine Urobilinogen NEGATIVE (0-1) mg/dL Ur Leukocyte Esterase NEGATIVE (NEGATIVE) Urine WBC (Auto) NONE (0-5) /HPF Urine RBC (Auto) NONE (0-2) /HPF U Epithel Cells (Auto) NONE (FEW) /HPF Urine Bacteria (Auto) NONE (NEGATIVE) /HPF Urine Culture Reflexed NO (NO) Urine Glucose NEGATIVE (NEGATIVE) mg/dL 08/22/21 08/22/21 Range/Units 13:43 13:43 WBC 3.9 L (4.0-10.5) K/mm3 RBC 4.21 (4.1-5.4) M/mm3 Hgb 12.0 (12.0-16.0) gm/dl Hct 37.7 (35-47) % MCV 89.5 (78-100) fl MCH 28.5 (26-32) pg MCHC 31.8 L (32-36) g/dl RDW 14.2 H (11.5-14.0) % Plt Count 260 (150-450) K/mm3 MPV 8.9 (7.5-11.0) fl Gran % 65.5 (36.0-66.0) % Eos # (Auto) 0.04 (0-0.5) Absolute Lymphs (auto) 1.00 (1.0-4.6) Absolute Monos (auto) 0.28 (0.0-1.3) Lymphocytes % 25.8 (24.0-44.0) % Monocytes % 7.2 (0.0-12.0) % Eosinophils % 1.0 (0.00-5.0) % Basophils % 0.5 (0.0-0.4) % Absolute Granulocytes 2.54 (1.4-6.9) Basophils # 0.02 (0-0.4) Sodium 138 (137-145) mmol/L Potassium 4.3 (3.5-5.1) mmol/L Chloride 107 (98-107) mmol/L Carbon Dioxide 20 L (22-30) mmol/L Anion Gap 15.5 H (5-15) MEQ/L BUN 11 (7-17) mg/dL Creatinine 0.97 (0.52-1.04) mg/dL Estimated GFR 59.2 ML/MIN Glucose 99 (74-106) mg/dL Calcium 9.5 (8.4-10.2) mg/dL Magnesium (1.6-2.3) mg/dL Total Bilirubin 0.40 (0.2-1.3) mg/dL AST 29 (14-36) U/L ALT 16 (0-35) U/L Alkaline Phosphatase 75 (38-126) U/L Troponin I (0.000-0.034) ng/mL Serum Total Protein 8.0 (6.3-8.2) g/dL Albumin 4.5 (3.5-5.0) g/dL Urine Color (YELLOW) Urine Appearance (CLEAR) Urine pH (5-6) Ur Specific [place] (1.005-1.025) Urine Protein (Negative) Urine Ketones (NEGATIVE) Urine Blood (0-5) Jacob/ul Urine Nitrite (NEGATIVE) Urine Bilirubin (NEGATIVE) Urine Urobilinogen (0-1) mg/dL Ur Leukocyte Esterase (NEGATIVE) Urine WBC (Auto) (0-5) /HPF Urine RBC (Auto) (0-2) /HPF U Epithel Cells (Auto) (FEW) /HPF Urine Bacteria (Auto) (NEGATIVE) /HPF Urine Culture Reflexed (NO) Urine Glucose (NEGATIVE) mg/dL - Progress Progress: improved Progress Note: 08/22/21 15:47 75-year-old is evaluated for feeling dizzy and paranoid after taking medications. I have seen her in the past and she is very paranoid about certain things. She has a nonfocal neuro exam throughout stay in the ER. I have obtained CT head which is negative for any acute findings. Grossly unremarkable work-up including urinalysis and troponins. Mild dehydration and given a fluid bolus. EKG showed sinus tach without any ST elevations. Chest x-ray negative for any acute cardiopulmonary findings. Patient remains stable. 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 At this point patient is being discharged with outpatient follow-up. Discussed signs symptoms of worsening needing return to ER which she seems understanding. Counseled pt/family regarding: lab results, diagnosis, need for follow-up, rad results - Departure Departure Disposition: Home Clinical Impression: Paranoia (psychosis), Dizziness Alzheimer's dementia Qualifiers: Alzheimer's disease onset: unspecified onset Dementia behavioral disturbance: without behavioral disturbance Qualified Code(s): G30.9 - Alzheimer's disease, unspecified; F02.80 - Dementia in other diseases classified elsewhere without behavioral disturbance Condition: Stable Critical Care Time: No Referrals: JAMES RG MD [Primary Care Provider] - (Call tomorrow for reevaluation) Instructions: Dizziness, Nonvertigo, (DC) Additional Instructions: Continue with your current medications. Follow-up with your primary care for reevaluation. Return to ER if again have symptoms of dizziness, lightheadedness, numbness tingling/focal weakness, difficulty speech or visual symptoms.
[2021-08-22 15:21] VITALS: BP 162/97
[2021-08-22 16:06] VITALS: PULSE 99; O2SAT 96
== END 2021-08-22 16:10 | disposition home or self-care (01) ==
LOC: ED 13:20
DX: F22 Delusional disorders (principal); G30.9 Alzheimer's disease, unspecified; F02.81 Dementia in other diseases classified elsewhere, unspecified severity, with behavioral disturbance; R42 Dizziness and giddiness; I10 Essential (primary) hypertension; R11.0 Nausea; R53.83 Other fatigue; Z79.899 Other long term (current) drug therapy
CPT/HCPCS: 36000; 36415; 70450; 71045; 80053; 81001; 83735; 84484; 85025; 93005; 93041; 96360; 99284

== ENCOUNTER 2021-08-30 22:52 | Emergency (ER) | payer MEDICARE ==
[2021-08-30 23:14] VITALS: O2SAT 98
[2021-08-30 23:38] LABS: Absolute Neutrophil Ct (ANC) 2.28 (1.4-6.9); BASOPHIL % 0.2 % (0.0-0.4); Basophil (Absolute #) 0.01 (0-0.4); Eosinophil % 1.2 % (0.00-5.0); Eosinophil (Absolute #) 0.05 (0-0.5); Hematocrit 37.2 % (35-47); Hemoglobin 11.7 gm/dl (12.0-16.0); Lymphocyte (Absolute #) 1.44 (1.0-4.6); Lymphocytes % 34.3 % (24.0-44.0); Mean Cell Volume 89.9 fl (78-100); Mean Corpuscular Hemoglobin 28.3 pg (26-32); Mean Corpuscular Hgb Concent. 31.5 g/dl (32-36); Mean Platelet Volume 9.3 fl (7.5-11.0); Monocyte (Absolute #) 0.42 (0.0-1.3); Neutrophil % 54.3 % (36.0-66.0); Platelet Count 256 K/mm3 (150-450); Red Blood Count 4.14 M/mm3 (4.1-5.4); Red Cell Distribution Width 14.5 % (11.5-14.0); White Blood Count 4.2 K/mm3 (4.0-10.5)
--- NOTE | 2021-08-30 23:38 | ERPHSYRPT ---
- History of Present Illness Time Seen by Provider: 08/30/21 22:56 Source: patient, family Exam Limitations: clinical condition Patient Subjective Stated Complaint: Per [id number], "Her blood pressure was high and I don't think she is acting herself." Triage Nursing Assessment: Patient's daughter reported more frequent complaints of headaches over the past two days with hypertension at the assisted living facility of 170s/100s. Recent medication change of icreased dose of rivastigmine to 13.3. Pupils 3mm bilateral. Symmetrical chest expansion Heart tones S1/S2 RRR without extra sounds. Lungs vesicular. Gait steady without complications or assitive devices. Peripheral pulses +2 bilateral. No noted focal/global neurological deficits. Physician History: 75 years old female with history of Alzheimer dementia, paranoia, anxiety/depression/hypertension resident of assisted living is brought in the ER by family as patient was noticed to have increased paranoia and complaining of headache and not acting her normal since evening. Patient reports she is having moderate headache now but denies any chest pain palpitations or shortness of breath. Moving all 4 extremities and does not seems to be in any distress. Patient does have issues with her mood at times. History is obtained from patient and her [id number] and is limited due to her condition. Patient current blood pressure is in 200s and at half-way it was 170/100. Timing/Duration: today, sudden Severity: moderate Modifying Factors: Improves With: nothing Associated Symptoms: headaches Allergies/Adverse Reactions: No Known Drug Allergies Allergy (Verified 09/04/21 16:21) Home Medications: Aspirin 81 gm Chew [Baby Aspirin 81 mg Chew] 81 mg DAILY 04/26/19 [History] Escitalopram Oxalate 10 mg [Lexapro 10 MG] 20 mg PO DAILY 04/26/19 [History] Lansoprazole [Prevacid] 15 mg DAILY 04/26/19 [History] lisinopriL [Lisinopril] 20 mg DAILY 04/26/19 [History] Memantine HCl [Namenda] 10 mg PO BID 01/31/21 [History] Mirtazapine [Remeron] 15 mg PO DAILY 03/06/21 [History] Alendronate Sodium 70 mg [Fosamax 70 MG] 70 mg PO WEEKLY 08/22/21 [History] Calcium Carb/D3/Mag Aa Chelate [Coral Calcium Capsule] 1 each PO DAILY 08/22/21 [History] Levothyroxine Sodium 50 Mcg [Synthroid 50 Mcg] 50 mcg PO DAILY 08/22/21 [History] Rivastigmine [Exelon] 1 each TD DAILY 08/22/21 [History] Hx Tetanus, Diphtheria Vaccination/Date Given: Yes Hx Influenza Vaccination/Date Given: No Hx Pneumococcal Vaccination/Date Given: No Travel Risk - International Travel Have you traveled outside of the country in past 3 weeks: No - Coronavirus Screening Are you exhibiting any of the following symptoms?: No Close contact with a COVID-19 positive Pt in past 14-21 Days: No - Vaccine Status Have you recieved a Covid-19 vaccination: Yes Terminologist: Unknown - Vaccination Dates Dates if Unknown: unknown - Review of Systems Constitutional: No Symptoms Eyes: No Symptoms Ears, Nose, & Throat: No Symptoms Respiratory: No Symptoms Cardiac: No Symptoms Abdominal/Gastrointestinal: No Symptoms Genitourinary Symptoms: No Symptoms Musculoskeletal: No Symptoms Skin: No Symptoms Neurological: Headache Psychological: Emotional Lability, Memory Loss, Mood Changes Endocrine: No Symptoms Hematologic/Lymphatic: No Symptoms - Past Medical History Pertinent Past Medical History: Yes Neurological History: Alzheimer's Disease, Dementia ENT History: Cataracts Cardiac History: Hypertension GI Medical History: GERD History: No Pertinent History Psycho-Social History: No Pertinent History Female Reproductive Disorders: No Pertinent History - Past Surgical History Past Surgical History: Yes Female Surgical History: Hysterectomy, Section - Social History Smoking Status: Never smoker Exposure to second hand smoke: No Drug Use: none Patient Lives Alone: No ([facility] assisted living) - Female History Hx Now: No - Nursing Vital Signs Nursing Vital Signs: Initial Vital Signs Respiratory Rate 18 08/30/21 22:54 Blood Pressure 206/116 08/30/21 22:54 O2 Sat by Pulse Oximetry 98 08/30/21 22:54 Pain Scale Pain Intensity 0 - Physical Exam General Appearance: no apparent distress, alert, anxiety Eye Exam: PERRL/EOMI, eyes nml inspection Ears, Nose, Throat Exam: normal ENT inspection, pharynx normal Neck Exam: normal inspection, non-tender, supple, full range of motion Respiratory Exam: normal breath sounds, lungs clear Cardiovascular Exam: regular rate/rhythm, normal heart sounds Gastrointestinal/Abdomen Exam: soft, normal bowel sounds, No tenderness Back Exam: normal inspection, normal range of motion Extremity Exam: normal inspection, normal range of motion, pelvis stable Neurologic Exam: alert, oriented x 3, cooperative, 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, nml cerebellar function, sensation nml, No normal mood/affect, No motor deficits Skin Exam: normal color SpO2 Interpretation: normal SpO2: 98 O2 Delivery: Room Air - Course EKG Interpreted by Me: RATE (91), Sinus Rhythm, NORMAL AXIS, prolonged QT interval, Non-specific ST Changes Lab/Rad Data: Laboratory Result Diagrams 08/30/21 23:28 08/30/21 23:28 Laboratory Results 08/31/21 08/30/21 08/30/21 Range/Units 00:25 23:28 23:28 WBC (4.0-10.5) K/mm3 RBC (4.1-5.4) M/mm3 Hgb (12.0-16.0) gm/dl Hct (35-47) % MCV (78-100) fl MCH (26-32) pg MCHC (32-36) g/dl RDW (11.5-14.0) % Plt Count (150-450) K/mm3 MPV (7.5-11.0) fl Gran % (36.0-66.0) % Eos # (Auto) (0-0.5) Absolute Lymphs (auto) (1.0-4.6) Absolute Monos (auto) (0.0-1.3) Lymphocytes % (24.0-44.0) % Monocytes % (0.0-12.0) % Eosinophils % (0.00-5.0) % Basophils % (0.0-0.4) % Absolute Granulocytes (1.4-6.9) Basophils # (0-0.4) Sodium 138 (137-145) mmol/L Potassium 3.7 (3.5-5.1) mmol/L Chloride 104 (98-107) mmol/L Carbon Dioxide 23 (22-30) mmol/L Anion Gap 14.8 (5-15) MEQ/L BUN 14 (7-17) mg/dL Creatinine 1.00 (0.52-1.04) mg/dL Estimated GFR 57.1 ML/MIN Glucose 104 (74-106) mg/dL Calcium 9.4 (8.4-10.2) mg/dL Total Bilirubin 0.50 (0.2-1.3) mg/dL AST 27 (14-36) U/L ALT 15 (0-35) U/L Alkaline Phosphatase 82 (38-126) U/L Troponin I < 0.012 (0.000-0.034) ng/mL NT-Pro-B Natriuret Pep 61.2 (0-1800) pg/mL Serum Total Protein 8.0 (6.3-8.2) g/dL Albumin 4.6 (3.5-5.0) g/dL Urine Color STRAW (YELLOW) Urine Appearance CLEAR (CLEAR) Urine pH 7.0 (5-6) Ur Specific [place] 1.005 (1.005-1.025) Urine Protein NEGATIVE (Negative) Urine Ketones NEGATIVE (NEGATIVE) Urine Blood NEGATIVE (0-5) Jacob/ul Urine Nitrite NEGATIVE (NEGATIVE) Urine Bilirubin NEGATIVE (NEGATIVE) Urine Urobilinogen NEGATIVE (0-1) mg/dL Ur Leukocyte Esterase NEGATIVE (NEGATIVE) Urine WBC (Auto) 0-2 (0-5) /HPF Urine RBC (Auto) NONE (0-2) /HPF U Epithel Cells (Auto) NONE (FEW) /HPF Urine Bacteria (Auto) NONE SEEN (NEGATIVE) /HPF Urine Culture Reflexed NO (NO) Urine Glucose NEGATIVE (NEGATIVE) mg/dL 08/30/21 Range/Units 23:28 WBC 4.2 (4.0-10.5) K/mm3 RBC 4.14 (4.1-5.4) M/mm3 Hgb 11.7 L (12.0-16.0) gm/dl Hct 37.2 (35-47) % MCV 89.9 (78-100) fl MCH 28.3 (26-32) pg MCHC 31.5 L (32-36) g/dl RDW 14.5 H (11.5-14.0) % Plt Count 256 (150-450) K/mm3 MPV 9.3 (7.5-11.0) fl Gran % 54.3 (36.0-66.0) % Eos # (Auto) 0.05 (0-0.5) Absolute Lymphs (auto) 1.44 (1.0-4.6) Absolute Monos (auto) 0.42 (0.0-1.3) Lymphocytes % 34.3 (24.0-44.0) % Monocytes % 10.0 (0.0-12.0) % Eosinophils % 1.2 (0.00-5.0) % Basophils % 0.2 (0.0-0.4) % Absolute Granulocytes 2.28 (1.4-6.9) Basophils # 0.01 (0-0.4) Sodium (137-145) mmol/L Potassium (3.5-5.1) mmol/L Chloride (98-107) mmol/L Carbon Dioxide (22-30) mmol/L Anion Gap (5-15) MEQ/L BUN (7-17) mg/dL Creatinine (0.52-1.04) mg/dL Estimated GFR ML/MIN Glucose (74-106) mg/dL Calcium (8.4-10.2) mg/dL Total Bilirubin (0.2-1.3) mg/dL AST (14-36) U/L ALT (0-35) U/L Alkaline Phosphatase (38-126) U/L Troponin I (0.000-0.034) ng/mL NT-Pro-B Natriuret Pep (0-1800) pg/mL Serum Total Protein (6.3-8.2) g/dL Albumin (3.5-5.0) g/dL Urine Color (YELLOW) Urine Appearance (CLEAR) Urine pH (5-6) Ur Specific [place] (1.005-1.025) Urine Protein (Negative) Urine Ketones (NEGATIVE) Urine Blood (0-5) Jacob/ul Urine Nitrite (NEGATIVE) Urine Bilirubin (NEGATIVE) Urine Urobilinogen (0-1) mg/dL Ur Leukocyte Esterase (NEGATIVE) Urine WBC (Auto) (0-5) /HPF Urine RBC (Auto) (0-2) /HPF U Epithel Cells (Auto) (FEW) /HPF Urine Bacteria (Auto) (NEGATIVE) /HPF Urine Culture Reflexed (NO) Urine Glucose (NEGATIVE) mg/dL - Progress Progress: improved Progress Note: 08/31/21 01:11 Patient has nonfocal neuro exam. She has a minimal headache. Broad work-up was done which is grossly negative including CT head. Patient headache is completely resolved and blood pressure improved to 130 without any antihypertensive. I believe her symptoms are a combination of behavioral issue with Alzheimer causing anxiety and elevated blood pressure leading to headache. At this point she has a nonfocal neuro exam, do not think she needs any other work-up and is stable for discharge with outpatient follow-up. Discussed plan with [id number] who understand and agrees with it. Counseled pt/family regarding: lab results, diagnosis, need for follow-up, rad results - Departure Departure Disposition: Home Clinical Impression: Paranoia (psychosis), Uncontrolled hypertension Alzheimer's dementia Qualifiers: Alzheimer's disease onset: unspecified onset Dementia behavioral disturbance: with behavioral disturbance Qualified Code(s): G30.9 - Alzheimer's disease, unspecified Condition: Stable Critical Care Time: No Referrals: JAMES RG MD [Primary Care Provider] - Follow Up with PCP/3 days Instructions: Malignant Hypertension (DC) Additional Instructions: Keep a blood pressure log and follow-up with primary care for reevaluation. Return to ER for worsening headache, uncontrolled hypertension, focal numbness tingling or weakness. Continue with your current medications.
[2021-08-30 23:51] LABS: ALBUMIN 4.6 g/dL (3.5-5.0); ANION GAP 14.8 MEQ/L (5-15); BILIRUBIN,TOTAL 0.5 mg/dL (0.2-1.3); Calcium 9.4 mg/dL (8.4-10.2); EST GLOMERULAR FILTRATION RATE 57.1 ML/MIN; NT PRO BNP 61.2 pg/mL (0-1800); Potassium 3.7 mmol/L (3.5-5.1)
[2021-08-31 00:35] LABS: Appearance CLEAR (CLEAR); Bilirubin NEGATIVE (NEGATIVE); Blood NEGATIVE Ery/ul (0-5); Glucose NEGATIVE (NEGATIVE); Ketones NEGATIVE (NEGATIVE); Leukocyte Esterase NEGATIVE (NEGATIVE); Nitrite NEGATIVE (NEGATIVE); Protein,Urine Dip NEGATIVE (Negative); Specific Gravity 1.005 (1.005-1.025); Urobilinogen NEGATIVE mg/dL (0-1); WBC 0-2 /HPF (0-5)
[2021-08-31 00:36] LABS: Bacteria NONE SEEN /HPF (NEGATIVE)
[2021-08-31 01:25] VITALS: BP 130/83; PULSE 66
--- NOTE | 2021-08-31 06:55 | XRAY ---
Indication: Headache. Hypertension. Multiple contiguous axial images obtained through the head without contrast. Comparison: August 22, 2021 Again age-appropriate global atrophy and minimal periventricular degenerative micro-ischemia. No acute intracranial hemorrhage, abnormal extra-axial fluid collection, or mass effect. [place]-white matter differentiation preserved. Fourth ventricle is midline without hydrocephalus. Bony calvarium intact. Visualized paranasal sinuses and mastoid air cells are clear. Impression: Continued nonacute senile brain. Comment: Preliminary interpretation made by [facility]. No critical discrepancy.
== END 2021-08-31 01:36 | disposition home or self-care (01) ==
LOC: ED 22:52
DX: F22 Delusional disorders (principal); G30.9 Alzheimer's disease, unspecified; I10 Essential (primary) hypertension; G30.1 Alzheimer's disease with late onset; F02.80 Dementia in other diseases classified elsewhere, unspecified severity, without behavioral disturbance, psychotic disturbance, mood disturbance, and anxiety; Z79.899 Other long term (current) drug therapy; R53.1 Weakness; R20.0 Anesthesia of skin
CPT/HCPCS: 36000; 36415; 70450; 80053; 81001; 83880; 84484; 85025; 93005; 93041; 99284

== ENCOUNTER 2021-09-04 16:10 | Emergency (ER) | payer MEDICARE ==
--- NOTE | 2021-09-04 16:21 | ERPHSYRPT ---
- History of Present Illness Time Seen by Provider: 09/04/21 16:21 Source: patient, old records Exam Limitations: clinical condition Physician History: This is a 75-year-old [place] Vietnamese female who is well-known to our emergency department. She has a history of Alzheimer's dementia, paranoia psychosis, hypertension, hypothyroidism and gastroesophageal reflux disease. She is a resident at [facility], a local fpc. According to the staff at [facility], the patient and her family had some type of disagreement and the patient stated that she was not feeling well. Also according to staff at the fpc, there was a change in her medications recently. She remained outside as she normally does for a period of time but when staff went out to lo gaudencio her she was gone. The patient had ambulated from [facility] to the emergency department because she states that she has a sore throat. She denies any other medical complaints. She states she is not suicidal and she is not homicidal. Her vital signs are stable upon admission into the emergency department for evaluation. Timing/Duration: today Severity: mild Modifying Factors: Improves With: nothing Associated Symptoms: other (Sore throat), No nausea, No vomiting, No abdominal pain, No shortness of breath, No cough, No chest pain, No headaches, No loss of appetite Allergies/Adverse Reactions: No Known Drug Allergies Allergy (Verified 09/04/21 16:21) Home Medications: Aspirin 81 gm Chew [Baby Aspirin 81 mg Chew] 81 mg DAILY 04/26/19 [History] Escitalopram Oxalate 10 mg [Lexapro 10 MG] 20 mg PO DAILY 04/26/19 [History] Lansoprazole [Prevacid] 15 mg DAILY 04/26/19 [History] lisinopriL [Lisinopril] 20 mg DAILY 04/26/19 [History] Memantine HCl [Namenda] 10 mg PO BID 01/31/21 [History] Mirtazapine [Remeron] 15 mg PO DAILY 03/06/21 [History] Alendronate Sodium 70 mg [Fosamax 70 MG] 70 mg PO WEEKLY 08/22/21 [History] Calcium Carb/D3/Mag Aa Chelate [Coral Calcium Capsule] 1 each PO DAILY 08/22/21 [History] Levothyroxine Sodium 50 Mcg [Synthroid 50 Mcg] 50 mcg PO DAILY 08/22/21 [History] Rivastigmine [Exelon] 1 each TD DAILY 08/22/21 [History] Hx Tetanus, Diphtheria Vaccination/Date Given: Yes Hx Influenza Vaccination/Date Given: No Hx Pneumococcal Vaccination/Date Given: No Travel Risk - International Travel Have you traveled outside of the country in past 3 weeks: No - Coronavirus Screening Are you exhibiting any of the following symptoms?: No Close contact with a COVID-19 positive Pt in past 14-21 Days: No - Vaccine Status Have you recieved a Covid-19 vaccination: Yes Porcelain Finish Sprayer: Unknown - Vaccination Dates Dates if Unknown: unknown - Review of Systems Constitutional: No Symptoms Eyes: No Symptoms Ears, Nose, & Throat: Throat Pain Respiratory: No Symptoms Cardiac: No Symptoms Abdominal/Gastrointestinal: No Symptoms Genitourinary Symptoms: No Symptoms Musculoskeletal: No Symptoms Skin: No Symptoms Neurological: No Symptoms Psychological: No Symptoms Endocrine: No Symptoms Hematologic/Lymphatic: No Symptoms Immunological/Allergic: No Symptoms All Other Systems: Reviewed and Negative - Past Medical History Pertinent Past Medical History: Yes Neurological History: Alzheimer's Disease, Dementia ENT History: Cataracts Cardiac History: Hypertension GI Medical History: GERD History: No Pertinent History Psycho-Social History: No Pertinent History Female Reproductive Disorders: No Pertinent History - Past Surgical History Past Surgical History: Yes Female Surgical History: Hysterectomy, Section - Social History Smoking Status: Never smoker Exposure to second hand smoke: No Drug Use: none Patient Lives Alone: No ([facility] assisted living) - Nursing Vital Signs Nursing Vital Signs: Initial Vital Signs Temperature 97.9 F 09/04/21 16:11 Pulse Rate 99 H 09/04/21 16:11 Blood Pressure 165/104 09/04/21 16:11 O2 Sat by Pulse Oximetry 97 09/04/21 16:11 Pain Scale Pain Intensity 0 - Physical Exam General Appearance: no apparent distress, alert, anxiety Eye Exam: PERRL/EOMI, eyes nml inspection Ears, Nose, Throat Exam: normal ENT inspection, TMs normal, pharynx normal, moist mucous membranes Neck Exam: normal inspection, non-tender, supple, full range of motion Respiratory Exam: normal breath sounds, lungs clear, airway intact, No chest tenderness, No respiratory distress Cardiovascular Exam: regular rate/rhythm, normal heart sounds, normal peripheral pulses Gastrointestinal/Abdomen Exam: soft, normal bowel sounds, No tenderness Pelvic Exam: not done Rectal Exam: not done Back Exam: normal inspection, normal range of motion, No CVA tenderness, No vertebral tenderness Extremity Exam: normal inspection, normal range of motion, pelvis stable Neurologic Exam: alert, oriented x 3, cooperative, airplane charter clerk II-XII nml as tested, normal mood/affect, nml cerebellar function, nml station & gait, sensation nml Skin Exam: normal color, warm, dry Lymphatic Exam: No adenopathy SpO2 Interpretation: normal SpO2: 97 O2 Delivery: Room Air - Course Nursing assessment & vital signs reviewed: Yes Ordered Tests: Active Orders 24 hr Category Date Time Status BMP Stat Lab 09/04/21 16:50 Completed CBC Stat Lab 09/04/21 16:50 Completed INFLUENZA A+B RON Stat Lab 09/04/21 16:48 Completed T4 (Thyroxine) Stat Lab 09/04/21 16:50 Completed TSH, 3RD Generation Stat Lab 09/04/21 16:50 Completed Lab/Rad Data: Laboratory Result Diagrams 09/04/21 16:50 09/04/21 16:50 Laboratory Results 09/04/21 09/04/21 09/04/21 Range/Units 16:50 16:50 16:50 WBC 3.6 L (4.0-10.5) K/mm3 RBC 4.03 L (4.1-5.4) M/mm3 Hgb 11.5 L (12.0-16.0) gm/dl Hct 36.9 (35-47) % MCV 91.6 (78-100) fl MCH 28.5 (26-32) pg MCHC 31.2 L (32-36) g/dl RDW 14.7 H (11.5-14.0) % Plt Count 245 (150-450) K/mm3 MPV 9.0 (7.5-11.0) fl Sodium 140 (137-145) mmol/L Potassium 4.1 (3.5-5.1) mmol/L Chloride 104 (98-107) mmol/L Carbon Dioxide 23 (22-30) mmol/L Anion Gap 16.6 H (5-15) MEQ/L BUN 15 (7-17) mg/dL Creatinine 1.11 H (0.52-1.04) mg/dL Estimated GFR 50.7 ML/MIN Glucose 116 H (74-106) mg/dL Calcium 9.4 (8.4-10.2) mg/dL Thyroxine (T4) 9.32 (5.53-10.96) ug/dL TSH 3rd Generation 0.164 L (0.47-4.68) mIU/L Influenza Type A Ag (NEGATIVE) Influenza Type B Ag (NEGATIVE) Group A Strep Antibody (NEGATIVE) 09/04/21 09/04/21 Range/Units 16:50 16:48 WBC (4.0-10.5) K/mm3 RBC (4.1-5.4) M/mm3 Hgb (12.0-16.0) gm/dl Hct (35-47) % MCV (78-100) fl MCH (26-32) pg MCHC (32-36) g/dl RDW (11.5-14.0) % Plt Count (150-450) K/mm3 MPV (7.5-11.0) fl Sodium (137-145) mmol/L Potassium (3.5-5.1) mmol/L Chloride (98-107) mmol/L Carbon Dioxide (22-30) mmol/L Anion Gap (5-15) MEQ/L BUN (7-17) mg/dL Creatinine (0.52-1.04) mg/dL Estimated GFR ML/MIN Glucose (74-106) mg/dL Calcium (8.4-10.2) mg/dL Thyroxine (T4) (5.53-10.96) ug/dL TSH 3rd Generation (0.47-4.68) mIU/L Influenza Type A Ag NEGATIVE (NEGATIVE) Influenza Type B Ag NEGATIVE (NEGATIVE) Group A Strep Antibody NOT DETECTED (NEGATIVE) - Progress Progress: unchanged Counseled pt/family regarding: lab results, diagnosis - Departure Departure Disposition: Home Clinical Impression: Low TSH level, Pharyngitis Condition: Stable Critical Care Time: No Referrals: JAMES RG MD [Primary Care Provider] - Additional Instructions: Continue medication as prescribed. Call the patient's physician and have them reviewed the labs obtained to the emergency department and the patient's thyroid medication and make adjustments if needed. Drink plenty of fluids.
[2021-09-04 16:52] LABS: Hematocrit 36.9 % (35-47); Hemoglobin 11.5 gm/dl (12.0-16.0); Mean Cell Volume 91.6 fl (78-100); Mean Corpuscular Hemoglobin 28.5 pg (26-32); Mean Corpuscular Hgb Concent. 31.2 g/dl (32-36); Platelet Count 245 K/mm3 (150-450); Red Blood Count 4.03 M/mm3 (4.1-5.4); Red Cell Distribution Width 14.7 % (11.5-14.0); White Blood Count 3.6 K/mm3 (4.0-10.5)
[2021-09-04 17:09] LABS: INFLUENZA A NEGATIVE (NEGATIVE); INFLUENZA B NEGATIVE (NEGATIVE)
[2021-09-04 17:14] VITALS: BP 172/102
[2021-09-04 17:38] LABS: ANION GAP 16.6 MEQ/L (5-15); Calcium 9.4 mg/dL (8.4-10.2); Creatinine 1 1.11 mg/dL (0.52-1.04); EST GLOMERULAR FILTRATION RATE 50.7 ML/MIN; Potassium 4.1 mmol/L (3.5-5.1); TSH, 3RD Generation 0.164 mIU/L (0.47-4.68)
[2021-09-04 18:03] VITALS: PULSE 80; O2SAT 96
== END 2021-09-04 18:21 | disposition home or self-care (01) ==
LOC: ED 16:10
DX: R94.6 Abnormal results of thyroid function studies (principal); J02.9 Acute pharyngitis, unspecified
CPT/HCPCS: 36415; 80048; 84436; 84443; 85027; 87400; 87651; 99283

== ENCOUNTER 2021-09-09 09:43 | Observation (INO) | payer MEDICARE ==
--- NOTE | 2021-09-09 10:29 | ERPHSYRPT ---
- History of Present Illness Source: patient, EMS Exam Limitations: other (Poor historian due to dementia) Patient Subjective Stated Complaint: pt a resident at [facility] assisted living, according to EMS pt was refusing her morning medications and became aggressive toward nursing staff at that time. at this time pt is complaining of some acid reflux for which she has not received her medication. pt denies other complaints at this time. Triage Nursing Assessment: pt is aox3, cooperative with staff, answers all questions appropriately, talkative, pupils perrl, afebrile, resps easy and non labored, radial pulses strong and equal, skin is pink warm dry. Physician History: 75 yo AF from [place] sent due to agitation and refusing meds. Pt arrived alert /oriented x2/NAD. Her only complaint is that her throat is burning. She denies chest pain/N/V/D/dyspnea/focal weakness/ARITA/cough. Timing/Duration: today Severity: mild Modifying Factors: Improves With: nothing Associated Symptoms: denies symptoms, heartburn, No nausea, No vomiting, No abdominal pain, No shortness of breath, No diaphoresis, No cough, No chills, No chest pain, No fever, No headaches, No loss of appetite, No malaise, No rash, No syncope, No seizure, No weakness Allergies/Adverse Reactions: No Known Drug Allergies Allergy (Verified 09/09/21 10:02) Home Medications: Aspirin 81 gm Chew [Baby Aspirin 81 mg Chew] 81 mg DAILY 04/26/19 [History] Escitalopram Oxalate 10 mg [Lexapro 10 MG] 20 mg PO DAILY 04/26/19 [History] Lansoprazole [Prevacid] 15 mg DAILY 04/26/19 [History] lisinopriL [Lisinopril] 20 mg DAILY 04/26/19 [History] Memantine HCl [Namenda] 10 mg PO BID 01/31/21 [History] Mirtazapine [Remeron] 15 mg PO DAILY 03/06/21 [History] Alendronate Sodium 70 mg [Fosamax 70 MG] 70 mg PO WEEKLY 08/22/21 [History] Calcium Carb/D3/Mag Aa Chelate [Coral Calcium Capsule] 1 each PO DAILY 08/22/21 [History] Levothyroxine Sodium 50 Mcg [Synthroid 50 Mcg] 50 mcg PO DAILY 08/22/21 [History] Rivastigmine [Exelon] 1 each TD DAILY 08/22/21 [History] Quetiapine Fumarate [Seroquel] 50 mg PO HS 09/09/21 [History] Hx Tetanus, Diphtheria Vaccination/Date Given: Yes Hx Influenza Vaccination/Date Given: Yes Hx Pneumococcal Vaccination/Date Given: Yes Immunizations Up to Date: Yes Travel Risk - International Travel Have you traveled outside of the country in past 3 weeks: No - Coronavirus Screening Are you exhibiting any of the following symptoms?: No Close contact with a COVID-19 positive Pt in past 14-21 Days: No - Vaccine Status Have you recieved a Covid-19 vaccination: Yes Ec Teacher: Unknown - Vaccination Dates Dates if Unknown: unk - Review of Systems Constitutional: No Symptoms Eyes: No Symptoms Ears, Nose, & Throat: No Symptoms Respiratory: No Symptoms Cardiac: No Symptoms Abdominal/Gastrointestinal: No Symptoms Genitourinary Symptoms: No Symptoms Musculoskeletal: No Symptoms Skin: No Symptoms Neurological: No Symptoms Psychological: No Symptoms Endocrine: No Symptoms Hematologic/Lymphatic: No Symptoms Immunological/Allergic: No Symptoms - Past Medical History Pertinent Past Medical History: Yes Neurological History: Alzheimer's Disease, Dementia ENT History: Cataracts Cardiac History: Hypertension GI Medical History: GERD History: No Pertinent History Psycho-Social History: No Pertinent History Female Reproductive Disorders: No Pertinent History - Past Surgical History Past Surgical History: Yes Female Surgical History: Hysterectomy, Section - Social History Smoking Status: Never smoker Exposure to second hand smoke: No Drug Use: none Patient Lives Alone: No Significant Family History: no pertinent family hx - Female History Hx Now: No - Nursing Vital Signs Nursing Vital Signs: Initial Vital Signs Temperature 98.6 F 09/09/21 09:49 Pulse Rate 77 09/09/21 09:49 Respiratory Rate 18 09/09/21 09:49 Blood Pressure 176/102 09/09/21 09:49 O2 Sat by Pulse Oximetry 99 09/09/21 09:49 Pain Scale Pain Intensity 0 Hypertensive - Physical Exam General Appearance: no apparent distress Eye Exam: PERRL/EOMI, eyes nml inspection Ears, Nose, Throat Exam: normal ENT inspection, TMs normal, pharynx normal, moist mucous membranes Neck Exam: normal inspection, non-tender, supple, full range of motion, No meningismus, No mass, No Brudzinski, No Kernig's, No carotid bruit Respiratory Exam: airway intact, crackles/rales (Rales L base), No respiratory distress Cardiovascular Exam: regular rate/rhythm, normal heart sounds, normal peripheral pulses, No murmur Gastrointestinal/Abdomen Exam: soft, normal bowel sounds, No tenderness Back Exam: normal inspection, normal range of motion, No CVA tenderness, No vertebral tenderness Extremity Exam: normal inspection, normal range of motion Neurologic Exam: alert, cooperative, field sales consultant II-XII nml as tested, normal mood/affect, sensation nml, confusion, No motor deficits, No sensory deficit, No agitation Skin Exam: normal color, warm, dry, No rash Lymphatic Exam: adenopathy SpO2 Interpretation: normal SpO2: 99 O2 Delivery: Room Air - Course Nursing assessment & vital signs reviewed: Yes EKG Interpreted by Me: RATE (NSR/R70/Normal QT, borderline QTc/Tall R wave V2/No acute St segment changes) Ordered Tests: Active Orders 24 hr Category Date Time Status EKG-ER Only STAT Care 09/09/21 10:08 Completed Heart-Healthy Diet Diet 09/10/21 Dinner Active CHEST 1 VIEW (PORTABLE) Stat Exams 09/09/21 10:08 Completed CBC W DIFF Stat Lab 09/09/21 10:21 Completed CMP Stat Lab 09/09/21 10:21 Completed CULTURE,URINE Stat Lab 09/09/21 12:48 Ordered NT PRO BNP Stat Lab 09/09/21 10:21 Completed PROTIME WITH INR Stat Lab 09/09/21 10:21 Completed PTT Stat Lab 09/09/21 10:21 Completed UA W/RFX UR CULTURE Stat Lab 09/09/21 11:30 Completed Transfer Order Routine Transfer 09/09/21 Completed Lab/Rad Data: Laboratory Result Diagrams 09/09/21 10:21 09/09/21 10:21 Laboratory Results 09/09/21 09/09/21 09/09/21 Range/Units 13:50 13:21 11:30 WBC (4.0-10.5) K/mm3 RBC (4.1-5.4) M/mm3 Hgb (12.0-16.0) gm/dl Hct (35-47) % MCV (78-100) fl MCH (26-32) pg MCHC (32-36) g/dl RDW (11.5-14.0) % Plt Count (150-450) K/mm3 MPV (7.5-11.0) fl Gran % (36.0-66.0) % Eos # (Auto) (0-0.5) Absolute Lymphs (auto) (1.0-4.6) Absolute Monos (auto) (0.0-1.3) Lymphocytes % (24.0-44.0) % Monocytes % (0.0-12.0) % Eosinophils % (0.00-5.0) % Basophils % (0.0-0.4) % Absolute Granulocytes (1.4-6.9) Basophils # (0-0.4) PT (9.4-12.5) SECONDS INR (0.8-3.0) APTT (25.1-36.5) SECONDS Sodium (137-145) mmol/L Potassium (3.5-5.1) mmol/L Chloride (98-107) mmol/L Carbon Dioxide (22-30) mmol/L Anion Gap (5-15) MEQ/L BUN (7-17) mg/dL Creatinine (0.52-1.04) mg/dL Estimated GFR ML/MIN Glucose (74-106) mg/dL Calcium (8.4-10.2) mg/dL Total Bilirubin (0.2-1.3) mg/dL AST (14-36) U/L ALT (0-35) U/L Alkaline Phosphatase (38-126) U/L Troponin 0.00 (0.00-0.03) ng/mL Serum Total Protein (6.3-8.2) g/dL Albumin (3.5-5.0) g/dL Urine Color COLORLESS (YELLOW) Urine Appearance CLEAR (CLEAR) Urine pH 8.0 (5-6) Ur Specific [place] 1.002 (1.005-1.025) Urine Protein NEGATIVE (Negative) Urine Ketones NEGATIVE (NEGATIVE) Urine Blood NEGATIVE (0-5) Jacob/ul Urine Nitrite NEGATIVE (NEGATIVE) Urine Bilirubin NEGATIVE (NEGATIVE) Urine Urobilinogen NEGATIVE (0-1) mg/dL Ur Leukocyte Esterase NEGATIVE (NEGATIVE) Urine WBC (Auto) NONE (0-5) /HPF Urine RBC (Auto) NONE (0-2) /HPF U Epithel Cells (Auto) NONE (FEW) /HPF Urine Bacteria (Auto) NONE (NEGATIVE) /HPF Urine Culture Reflexed NO (NO) Urine Glucose NEGATIVE (NEGATIVE) mg/dL SARS-CoV-2 Ag (Rapid) NEGATIVE (NEGATIVE) 09/09/21 09/09/21 09/09/21 Range/Units 10:21 10:21 10:21 WBC (4.0-10.5) K/mm3 RBC (4.1-5.4) M/mm3 Hgb (12.0-16.0) gm/dl Hct (35-47) % MCV (78-100) fl MCH (26-32) pg MCHC (32-36) g/dl RDW (11.5-14.0) % Plt Count (150-450) K/mm3 MPV (7.5-11.0) fl Gran % (36.0-66.0) % Eos # (Auto) (0-0.5) Absolute Lymphs (auto) (1.0-4.6) Absolute Monos (auto) (0.0-1.3) Lymphocytes % (24.0-44.0) % Monocytes % (0.0-12.0) % Eosinophils % (0.00-5.0) % Basophils % (0.0-0.4) % Absolute Granulocytes (1.4-6.9) Basophils # (0-0.4) PT 11.0 (9.4-12.5) SECONDS INR 0.93 (0.8-3.0) APTT 28.9 (25.1-36.5) SECONDS Sodium 140 (137-145) mmol/L Potassium 4.0 (3.5-5.1) mmol/L Chloride 104 (98-107) mmol/L Carbon Dioxide 23 (22-30) mmol/L Anion Gap 16.9 H (5-15) MEQ/L BUN 13 (7-17) mg/dL Creatinine 0.94 (0.52-1.04) mg/dL Estimated GFR > 60.0 ML/MIN Glucose 104 (74-106) mg/dL Calcium 9.2 (8.4-10.2) mg/dL Total Bilirubin 0.50 (0.2-1.3) mg/dL AST 28 (14-36) U/L ALT 17 (0-35) U/L Alkaline Phosphatase 81 (38-126) U/L Troponin 0.00 (0.00-0.03) ng/mL Serum Total Protein 8.0 (6.3-8.2) g/dL Albumin 4.6 (3.5-5.0) g/dL Urine Color (YELLOW) Urine Appearance (CLEAR) Urine pH (5-6) Ur Specific [place] (1.005-1.025) Urine Protein (Negative) Urine Ketones (NEGATIVE) Urine Blood (0-5) Jacob/ul Urine Nitrite (NEGATIVE) Urine Bilirubin (NEGATIVE) Urine Urobilinogen (0-1) mg/dL Ur Leukocyte Esterase (NEGATIVE) Urine WBC (Auto) (0-5) /HPF Urine RBC (Auto) (0-2) /HPF U Epithel Cells (Auto) (FEW) /HPF Urine Bacteria (Auto) (NEGATIVE) /HPF Urine Culture Reflexed (NO) Urine Glucose (NEGATIVE) mg/dL SARS-CoV-2 Ag (Rapid) (NEGATIVE) 09/09/21 Range/Units 10:21 WBC 3.0 L (4.0-10.5) K/mm3 RBC 4.24 (4.1-5.4) M/mm3 Hgb 11.9 L (12.0-16.0) gm/dl Hct 38.9 (35-47) % MCV 91.7 (78-100) fl MCH 28.1 (26-32) pg MCHC 30.6 L (32-36) g/dl RDW 14.8 H (11.5-14.0) % Plt Count 245 (150-450) K/mm3 MPV 9.4 (7.5-11.0) fl Gran % 49.1 (36.0-66.0) % Eos # (Auto) 0.05 (0-0.5) Absolute Lymphs (auto) 1.15 (1.0-4.6) Absolute Monos (auto) 0.30 (0.0-1.3) Lymphocytes % 38.5 (24.0-44.0) % Monocytes % 10.0 (0.0-12.0) % Eosinophils % 1.7 (0.00-5.0) % Basophils % 0.7 (0.0-0.4) % Absolute Granulocytes 1.47 (1.4-6.9) Basophils # 0.02 (0-0.4) PT (9.4-12.5) SECONDS INR (0.8-3.0) APTT (25.1-36.5) SECONDS Sodium (137-145) mmol/L Potassium (3.5-5.1) mmol/L Chloride (98-107) mmol/L Carbon Dioxide (22-30) mmol/L Anion Gap (5-15) MEQ/L BUN (7-17) mg/dL Creatinine (0.52-1.04) mg/dL Estimated GFR ML/MIN Glucose (74-106) mg/dL Calcium (8.4-10.2) mg/dL Total Bilirubin (0.2-1.3) mg/dL AST (14-36) U/L ALT (0-35) U/L Alkaline Phosphatase (38-126) U/L Troponin (0.00-0.03) ng/mL Serum Total Protein (6.3-8.2) g/dL Albumin (3.5-5.0) g/dL Urine Color (YELLOW) Urine Appearance (CLEAR) Urine pH (5-6) Ur Specific [place] (1.005-1.025) Urine Protein (Negative) Urine Ketones (NEGATIVE) Urine Blood (0-5) Jacob/ul Urine Nitrite (NEGATIVE) Urine Bilirubin (NEGATIVE) Urine Urobilinogen (0-1) mg/dL Ur Leukocyte Esterase (NEGATIVE) Urine WBC (Auto) (0-5) /HPF Urine RBC (Auto) (0-2) /HPF U Epithel Cells (Auto) (FEW) /HPF Urine Bacteria (Auto) (NEGATIVE) /HPF Urine Culture Reflexed (NO) Urine Glucose (NEGATIVE) mg/dL SARS-CoV-2 Ag (Rapid) (NEGATIVE) - Progress Progress Note: 09/09/21 11:19 Pt in NAD during stay and quite cooperative. 09/09/21 16:41 [facility] refused to take pt back and stated that she has been discharged from their facility. Pt's son wants her to go to [facility] for Med-Psych eval. Got Complaint Specialist involved who spoke to son/Darin. After many phone calls to multiple facilities per group social worker, pt accepted by [facility] [place] who arranged transport for pt. [facility] later called and stated that they could not take her until tomorrow. Pt accepted by Dr. Zee. 09/09/21 17:09 Counseled pt/family regarding: lab results, diagnosis, need for follow-up - Departure Departure Disposition: Observation Clinical Impression: Alzheimer's dementia, GERD (gastroesophageal reflux disease) Condition: Stable Critical Care Time: No
[2021-09-09 10:31] LABS: Absolute Neutrophil Ct (ANC) 1.47 (1.4-6.9); BASOPHIL % 0.7 % (0.0-0.4); Basophil (Absolute #) 0.02 (0-0.4); Eosinophil % 1.7 % (0.00-5.0); Eosinophil (Absolute #) 0.05 (0-0.5); Hematocrit 38.9 % (35-47); Hemoglobin 11.9 gm/dl (12.0-16.0); Lymphocyte (Absolute #) 1.15 (1.0-4.6); Lymphocytes % 38.5 % (24.0-44.0); Mean Cell Volume 91.7 fl (78-100); Mean Corpuscular Hemoglobin 28.1 pg (26-32); Mean Corpuscular Hgb Concent. 30.6 g/dl (32-36); Mean Platelet Volume 9.4 fl (7.5-11.0); Neutrophil % 49.1 % (36.0-66.0); Platelet Count 245 K/mm3 (150-450); Red Blood Count 4.24 M/mm3 (4.1-5.4); Red Cell Distribution Width 14.8 % (11.5-14.0)
[2021-09-09 10:37] LABS: INR 0.93 (0.8-3.0)
[2021-09-09 10:44] LABS: PTT 28.9 SECONDS (25.1-36.5)
[2021-09-09 10:48] LABS: ALBUMIN 4.6 g/dL (3.5-5.0); ALKALINE PHOSPHATASE 81 U/L (38-126); ANION GAP 16.9 MEQ/L (5-15); BLOOD UREA NITROGEN 13 mg/dL (7-17); CHLORIDE 104 mmol/L (98-107); Calcium 9.2 mg/dL (8.4-10.2); Carbon Dioxide 23 mmol/L (22-30); Creatinine 1 0.94 mg/dL (0.52-1.04); EST GLOMERULAR FILTRATION RATE > 60.0 ML/MIN; Glucose 104 mg/dL (74-106); SGOT/AST 28 U/L (14-36); SGPT/ALT 17 U/L (0-35); SODIUM 140 mmol/L (137-145)
--- NOTE | 2021-09-09 10:49 | XRAY ---
Indication: "Burning" throat. Comparison: August 22, 2021. Portable chest unchanged again demonstrating minimal bibasilar subsegmental atelectasis/scarring. Remaining heart and lungs unremarkable. Bony thorax intact again with mild osteopenia. No new/acute findings.
[2021-09-09 12:36] LABS: Appearance CLEAR (CLEAR); Bilirubin NEGATIVE (NEGATIVE); Blood NEGATIVE Ery/ul (0-5); Glucose NEGATIVE (NEGATIVE); Ketones NEGATIVE (NEGATIVE); Leukocyte Esterase NEGATIVE (NEGATIVE); Nitrite NEGATIVE (NEGATIVE); Protein,Urine Dip NEGATIVE (Negative); Specific Gravity 1.002 (1.005-1.025); Urobilinogen NEGATIVE mg/dL (0-1)
[2021-09-09 14:24] LABS: COVID AG -BINAX NOW RAPID TEST NEGATIVE (NEGATIVE)
[2021-09-09 16:33] LABS: NT PRO BNP 42.8 pg/mL (0-1800)
[2021-09-09] MEDS ORDERED: ZOFRAN ODT 4 MG PO PRN (19:38)
[2021-09-09] MEDS: Namenda 5 MG PO SCH (21:58)
[2021-09-09] MEDS ORDERED: Seroquel 25 MG PO SCH (22:00)
[2021-09-09] MEDS ORDERED: REMERON 30 MG PO SCH (22:00)
[2021-09-10] MEDS ORDERED: Fosamax 70 MG PO SCH (07:30)
[2021-09-10] MEDS ORDERED: MEDICATION INTERVENTION MC SCH (07:45)
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
[2021-09-10] MEDS ORDERED: ECOTRIN 81 MG PO SCH (10:00)
[2021-09-10] MEDS ORDERED: D3 PO SCH (10:00)
[2021-09-10] MEDS ORDERED: Zestril 20 MG PO SCH (10:00)
[2021-09-10] MEDS ORDERED: CALCIUM CARB PO SCH (10:00)
[2021-09-10] MEDS ORDERED: Lexapro 10 MG PO SCH (10:00)
[2021-09-10] MEDS ORDERED: Protonix 40MG Tablet PO SCH (10:00)
[2021-09-10] MEDS ORDERED: BABY ASPIRIN 81 MG CHEW PO SCH (10:00)
[2021-09-10] MEDS ORDERED: MAG AA CHELATE PO SCH (10:00)
[2021-09-10] MEDS ORDERED: SYNTHROID 50 MCG PO SCH (10:00)
[2021-09-10] MEDS ORDERED: Calcium 500MG W/Vit D Tablet PO SCH (10:00)
[2021-09-10] MEDS ORDERED: RIVASTIGMINE TD SCH (10:00)
[2021-09-10] MEDS: Namenda 5 MG PO SCH (10:56)
[2021-09-10 16:33] VITALS: BP 136/80; PULSE 76; O2SAT 91
[2021-09-11] MEDS ORDERED: Fosamax 70 MG PO SCH (06:00)
== END 2021-09-10 18:18 ==
LOC: ED 09:43 → MED SURG 17:20
PROVIDERS: ADMIT Family Medicine; ATTEND Family Medicine
DX: R45.850 Homicidal ideations (principal); G30.9 Alzheimer's disease, unspecified; F02.81 Dementia in other diseases classified elsewhere, unspecified severity, with behavioral disturbance; R45.1 Restlessness and agitation; I10 Essential (primary) hypertension; Z79.899 Other long term (current) drug therapy; K21.9 Gastro-esophageal reflux disease without esophagitis; Z20.822 Contact with and (suspected) exposure to COVID-19
CPT/HCPCS: 36415; 71045; 80053; 81001; 83880; 84484; 85025; 85610; 85730; 87086; 93005; 99000; 99285; G0378; Q0162; A9270-GY